=== PATIENT | female | born 1985 | race Caucasian/White ===

== ENCOUNTER 2024-01-17 11:24 | Outpatient (REF) | payer OTHER, SELFPAY ==
[2024-01-17 14:40] LABS: MANUAL DIFF FLAG NO
[2024-01-17 14:49] LABS: Basophils Percent Auto 0.3 % (0-2); Eosinophils Percent Auto 0.2 % (0-4); Hematocrit 39.7 % (37.0-47.0); Imm Gran Abs Auto 0.03 X10*3/uL (0.00-0.03); Imm Gran Pct Auto 0.3 % (0.0-0.4); Lymphocytes Absolute Auto 1.5 X10*3/uL (1.2-4.9); Lymphocytes Percent Auto 16.4 % (20-40); Mean Corpuscular HGB Conc 32.7 g/dl (31.0-35.0); Mean Corpuscular Hemoglobin 28.4 pg (27.0-33.0); Mean Corpuscular Volume 86.7 fL (80.0-98.0); Mean Platelet Volume 11.1 fL (9.4-12.3); Monocytes Absolute Auto 0.5 X10*3/uL (0.1-1.2); Neutrophils Percent Auto 77.8 % (45-73); Platelet Count 255 X10*3/uL (160-400); Red Blood Count 4.58 X10*6/uL (4.20-5.50); Red Cell Distribution Width 13.4 % (11.0-16.0)
[2024-01-17 15:15] LABS: Alanine Aminotransferase 9 U/L (0-31); Albumin Level 4.5 g/dL (3.5-5.0); Alkaline Phosphatase 40 U/L (39-117); Anion Gap 12 (12-20); Aspartate Amino Transferase 14 U/L (5-31); Bilirubin Total 0.2 mg/dL (0.0-1.0); Blood Urea Nitrogen 9 mg/dL (9-16); Calcium 9.5 mg/dL (8.4-10.2); Carbon Dioxide 26 mmol/L (22-29); Chloride 107 mmol/L (96-108); Cholesterol 181 mg/dL (<200); Estimated Glomerular Filt Rate > 60; Glucose Random 100 mg/dL (60-115); HDL Cholesterol 82 mg/dL (>40); LDL Cholesterol Calculated 84 mg/dL (<100); Potassium 3.9 mmol/L (3.3-5.1); Sodium 141 mmol/L (135-145); Total Protein 7.2 g/dL (6.5-8.0); Triglycerides 75 mg/dL (<150)
[2024-01-17 15:33] LABS: TSH reflex Free T4 0.95 uIU/mL (0.32-4.0)
== END 2024-01-17 11:25 | disposition home or self-care (01) ==
LOC: HO.CHCLDS 11:24
PROVIDERS: Visit Provider Internal Medicine
DX: R79.89 Other specified abnormal findings of blood chemistry (principal); K58.0 Irritable bowel syndrome with diarrhea; L40.9 Psoriasis, unspecified; Z30.09 Encounter for other general counseling and advice on contraception
CPT/HCPCS: 36415; 80053; 80061; 82306; 84443; 85025

== ENCOUNTER 2024-01-29 11:08 | Outpatient (REF) | payer MEDICAID, SELFPAY ==
[2024-02-01 08:18] LABS: TS Negative Control Passed; TS Panel A 0; TS Panel B 0; TS Positive Control Passed; TSpotTB Negative (Negative)
== END 2024-01-29 11:09 | disposition home or self-care (01) ==
LOC: HO.CHCLDS 11:08
PROVIDERS: Visit Provider Internal Medicine
DX: L40.9 Psoriasis, unspecified (principal)
CPT/HCPCS: 36415; 86481

== ENCOUNTER 2024-07-02 | Outpatient (REF) | payer MEDICAID, SELFPAY ==
[2024-07-03 10:42] LABS: HPV 16,18/45 See PAP report
[2024-07-12 16:53] LABS: C. trachomatis RNA TMA Not Detected (Not Detected); N. gonorrhoeae RNA TMA Not Detected (Not Detected); Trichomonas (NAAT) Not Detected (Not Detected)
== END 2024-07-02 00:01 | disposition home or self-care (01) ==
LOC: HO.LNP
PROVIDERS: Visit Provider Advanced Practice Midwife
DX: Z12.4 Encounter for screening for malignant neoplasm of cervix (principal); Z11.51 Encounter for screening for human papillomavirus (HPV); N89.8 Other specified noninflammatory disorders of vagina
CPT/HCPCS: 87491; 87591; 87624; 87661; 88175

== ENCOUNTER 2024-12-03 13:20 | Outpatient (REF) | payer MEDICAID, SELFPAY ==
[2024-12-03 15:08] LABS: Amphetamine Screen Urine Not Detected (Not Detect); Barbiturates, Urine Not Detected (Not Detect); Benzodiazepines Screen Urine Not Detected (Not Detect); Buprenorphine Scr Not Detected (Not Detect); Cannabinoid Screen Urine POSITIVE (Not Detect); Cocaine Screen Urine Not Detected (Not Detect); Fentanyl, urine Not Detected (Not Detect); Methadone Screen, Urine Not Detected (Not Detect); Opiate Screen Urine Not Detected (Not Detect); Oxycodone Screen Urine Not Detected (Not Detect); Phencyclidine Screen Urine Not Detected (Not Detect)
--- OUTSIDE RECORDS SUMMARY | 2024-12-03 15:49 | XMS_ITS | Encounter Summary ---
Author Organization [employer] Address [address] [place] [address] 7 [place] [address] Care Team Providers Care Supervisor Transcribing Operators Name Role Phone Elizabeth Marquez MD Primary Care Provider [phone] Abimbola Sabillon MD Primary Care Provider [phone] Reason for Visit * Reason Onset Date Comments Call Back Request 12/11/2023 Appointment Request 12/11/2023 Encounter Details Date Type Department Care Team ([facility] st Contact Info) Description 12/11/2023 Telephone [facility] [address], [place] [phone] Elizabeth Marquez MD [address] [place], [place] [phone] Call Back Request; Appointment Request Social History Tobacco Use Types Packs/Day Years Used Date Smoking Tobacco: Former Cigarettes Q uit: 2004 Smokeless Tobacco: Never Depression Answer Date Recorded Patient Health Questionnaire-9 Score 0 08/16/2022 Depression Answer Date Recorded Patient Health Questionnaire-2 Score 0 08/16/2022 Comments Unknown Sex and Gender Information Value Date Recorded Sex Assigned at Female 06/19/2022 10:27 AM EDT Legal Sex Female 10:27 AM EDT Gender Identity Female 06/19/2022 10:27 AM EDT Sexual Orientation Straight 06/19/2022 10 :27 AM EDT documented as of this encounter Miscellaneous Notes * Telephone Encounter - Celena Urena - 12/11/2023 9:21 AM EDT Tc from pt requesting an appointment for psoriatic arthritis. Pt states she used to be prescribed stelara inejctions but due to insurance has not taken any. Pt is requesting a call today. Please contact pt at [phone] documented in this encounter Plan of Treatment Upcoming Encounters Date Type Department Care Team (Late st Contact Info) Description 02/06/2025 4:00 PM EDT Office Visit [facility] [address] [place] [address] Abimbola Sabillon MD [address] [place] [address] documented as of this encounter Visit Diagnoses Not on filedocumented in this encounter Additional Health Concerns Assessment Noted Time PHQ-9 Depression Total Score: 0 08/16/20 9:06 AM EST documented as of this encounter Care Teams Supervisor Transcribing Operators Relationship Specialty Start Date End Date Elizabeth Marquez MD [address] [place] [id number] PCP - General Family Medicine 01/13/20 01/16/24 Abimbola Sabillon MD [address] [place] [id number] PCP - General Internal Medicine 01/17/24 documented as of this encounter
--- OUTSIDE RECORDS SUMMARY | 2024-12-03 15:49 | XMS_ITS | Encounter Summary ---
Author Organization [employer] Address [address] [place] [id number] Care Team Providers Care Mechanic Driver Name Role Phone Elizabeth Marquez MD Primary Care Provider [phone] Abimbola Sabillon MD Primary Care Provider [phone] Reason for Visit * Reason Comments Med Refill Encounter Details Date Type Department Care Team ([facility] Contact Info) Description 05/06/2023 Refill [facility] [address] [place] [address] Elizabeth Marquez MD [address] [place] [address] Social History Tobacco Use Types Packs/Day Years [...] AM EDT documented as of this encounter Plan of Treatment Upcoming Encounters Date Type Department Care Team ([facility] Contact Info) Description 02/06/2025 4:00 PM EDT Office Visit [facility] [address] [place] [address] Abimbola Sabillon MD [address] [place] [address] documented as of this encounter Visit Diagnoses Not on filedocumented in this encounter Additional Health Concerns Assessment Noted Time PHQ-9 Depression Total Score: 0 08/16/20 22 9:06 AM EST documented as of this encounter Care Teams Mechanic Driver Relationship Specialty Start Date End Date Elizabeth Marquez MD [address] [place] [id number] PCP - General Family Medicine 01/13/20 01/16/24 Abimbola Sabillon MD [address] [place] [address] PCP - General Internal Medicine 01/17/24 documented as of this encounter
--- OUTSIDE RECORDS SUMMARY | 2024-12-03 15:49 | XMS_ITS | Clinical Summary ---
Author Organization [employer] Address [address] [facility] [address] [place] [address] Care Team Providers Care Shotgun Shell Assembly Machine Operator Name Role Phone Abimbola Sabillon MD Primary Care Provider [phone] Allergies Active Allergy Reactions Criticality Noted Date Comments Doxycycline 04/18/2019 Atomoxetine Nausea 11/12/2024 Medications * This document contains information received from the source organization and may not represent a complete record from that organization. Trexall 10 MG tablet TAKE ONE TABLET TWICE A WEEK 022 Active ergocalciferol (Vitamin D2) 1.25 MG (67681 UT) capsuleIndicatio ns:Low vitamin D level Take 1 capsule (1.25 mg) by mouth 1 (one) time per week. 12 capsule 024 Active polyethylene glycol, PEG, 3350 (GaviLAX) 17 GM/SCOOP powderIndication s:Irritable bowel syndrome with diarrhea TAKE 17G BY MOUTH EVERY DAY MIXED WITH 8 OZ. WATER, JUICE, SODA, COFFEE OR TEA NEEDED FOR CONSTIPATION 510 g 11 024 Active norgestimate-eth inyl estradiol (Tri-Estarylla) 0.18/0.215/0.25 MG-35 MCG tabletIndication s:Encounter for other general counseling or advice on contraception Take 1 tablet by mouth Once per day. 84 tablet 3 024 Active cetirizine (ZyrTEC) 10 MG tabletIndication s:Seasonal allergies Take 1 tablet (10 mg) by mouth Once per day. 30 tablet 11 024 2024 Active Blood Pressure kitIndications:E levated BP without diagnosis of hypertension To check the BP daily 1 kit Active hydroCHLOROthiaz wendy (HYDRODiuril) 12.5 MG tabletIndication s:Elevated BP without diagnosis of hypertension Take 1 tablet (12.5 mg) by mouth Once per day. 30 tablet 11 024 2024 Active valACYclovir (Valtrex) 500 MG tabletIndication s:Cold sore 2 g twice daily for 1 day 4 tablet 5 024 Active Fluocinolone Acetonide Scalp ([place]-Smoothe/F S Scalp) 0.01 % oilIndications:P soriasis To use on the scalp 2 times a week. 118 mL 2 024 Active meloxicam (Mobic) 15 MG tabletIndication s:Pain in other joint Take 1 tablet (15 mg) by mouth Once per day. 30 tablet 2024 Active amLODIPine (Norvasc) 5 MG tabletIndication s:Primary hypertension TAKE 1 TABLET BY MOUTH EVERY DAY 30 tablet 024 Active dicyclomine (Bentyl) 10 MG capsuleIndicatio ns:Irritable bowel syndrome with diarrhea Take 1 capsule (10 mg) by mouth 4 times daily. 120 capsule 024 2024 Active cholecalciferol (Vitamin D-3) 25 MCG (1000 UT) tablet Take 1 tablet (25 mcg) by mouth Once per day. 60 tablet 025 Active ketoconazole (NIZOral) 2 % shampoo Apply topically 2 (two) times a week. 120 mL 11 025 Active hydrocortisone 0.5 % creamIndications :Eyelid dermatitis, allergic/contact Apply topically 2 times daily. 15 g 025 Active clobetasol (Temovate) 0.05 % ointmentIndicati ons:Psoriasis Apply topically 2 times daily. 60 g 025 Active clobetasol (Temovate) 0.05 % external solutionIndicati ons:Psoriasis Apply topically 2 times daily. 50 mL 3 025 Active ustekinumab (Stelara) 45 MG/0.5ML injectionIndicat ions:Psoriasis 45 mg on day 1, 45 mg Day 30 followed by 45 mg q 3 months. 0.5 mL 025 Active amphetamine-dext roamphetamine XR (Adderall XR) 5 MG 24 hr capsuleIndicatio ns:Attention deficit disorder, unspecified type Take 1 capsule (5 mg) by mouth in the morning. Do not crush or chew. 30 capsule 025 Active ustekinumab (Stelara) 45 MG/0.5ML injectionIndicat ions:Psoriasis 45 mg on day 1, 45 mg Day 30 followed by 45 mg q 3 months. 0.5 mL 025 2024 Discontinued(R eorder (will not trigger notification to Pharmacy)) atomoxetine (Strattera) 40 MG capsuleIndicatio ns:Attention deficit disorder, unspecified type 40 mg once daily. Increase after =3 days to 80 mg/day 60 capsule 025 2024 Discontinued atomoxetine (Strattera) 40 MG capsuleIndicatio ns:Attention deficit disorder, unspecified type TAKE 1 CAPSULES BY MOUTH DAILY. INCREASE TO 2 CAPS/DAY AFTER 3 DAYS 60 capsule 025 2024 Discontinued atomoxetine (Strattera) 40 MG capsuleIndicatio ns:Attention deficit disorder, unspecified type TAKE 1 CAPSULES BY MOUTH DAILY. INCREASE TO 2 CAPS/DAY AFTER 3 DAYS 60 capsule 025 2024 Discontinued atomoxetine (Strattera) 40 MG capsuleIndicatio ns:Attention deficit disorder, unspecified type Take 1 capsule (40 mg) by mouth Once per day for 3 days. Swallow capsule whole; do not open. If opened accidentally, do not touch eyes; wash hands immediately (product is an eye irritant). 3 capsule 025 2024 Discontinued(S wendy effects) buPROPion SR (Wellbutrin SR) 100 MG 12 hr tabletIndication s:Attention deficit disorder, unspecified type Take 1 tablet (100 mg) by mouth 2 times daily. 100 mg once daily in the morning. After >=1 week, based on response and tolerability, increase to 100 mg twice daily. 60 tablet 025 2024 Discontinued(S wendy effects) Active Problems Problem Noted Date Diagnosed Date Primary hypertension 07/11/2024 Moderate depressive disorder 03/05/2024 Assessment & Plan (03/05/2024 4:25 PM EDT): PROGRESS NOTE: ID: Susana is a 38 y.o. straight-identified cis-female with No previous hx of MH dx or sx No previous hx of MH services who presents for Anxiety and Depression. During IBH Consult Susana presenting with changes in sleep difficulty falling asleep and difficulty staying asleep , psychomotor retardation, trouble concentrating, fatigue/loss of energy and excessive worry/anxiety, difficulty controlling worry, restless/keyed up/On edge, easily fatigued, difficulty concentrating/Mind going blank , irritability, and sleep disturbance difficulty falling asleep and difficulty staying asleep ; for a period of 18+ mo, for all symptoms in the context of illness comorbidity, concern about health issues, work related stress. Susana presented with concerns of concentration issues, she reports she forget to finished sentences, forget things that costumers have told her 5 min ago, struggle with starting and finishing tasks. She reported family hx of ADHD ( niece) and Schizoaffective bipolar (brother). PLAN: New/Additional Services needed Off-site services for Behavioral Health Integration Plan External OP therapy referral and OP psychiatry Referral Patient Self Plan Patient to utilize skills provided in intervention , Patient to reach out to [facility] team as needed, Patient to engage in OP therapy , and Patient to reach out to [facility] as needed Mild anxiety 03/05/2024 Irritable bowel syndrome with diarrhea 2 Psoriasis 07/23/2018 Encounters Date Type Department Care Team Description 11/28/2024 Orders Only [facility] [address] [place] [address] Abimbola Sabillon MD Attention deficit disorder, unspecified type (Primary Dx) 11/11/2024 Orders Only [facility] [address] [place] [address] Abimbola Sabillon MD Attention deficit disorder, unspecified type (Primary Dx) 11/07/2024 Refill [facility] [address] [place], [place] [phone] Abimbola Sabillon MD Attention deficit disorder, unspecified type 11/05/2024 10:30 AM EDT Office Visit [facility] & PEDS [address] [place] [phone] Abimbola Sabillon MD Primary hypertension (Primary Dx); Psoriasis; Attention deficit disorder, unspecified type 11/05/2024 Refill [facility] PEDS [address] [place] [address] Abimbola Sabillon MD Attention deficit disorder, unspecified type 11/05/2024 Refill [facility] PEDS [address] [place] [address] Abimbola Sabillon MD Attention deficit disorder, unspecified type 11/05/2024 Refill [facility] [address] [place] [address] Abimbola Sabillon MD Psoriasis 11/05/2024 Travel 10/27/2024 Telephone [facility] [address] [place] [address] Abimbola Sabillon MD Medication Question 10/23/2024 Orders Only [facility] [address] [place] [address] Abimbola Sabillon MD Psoriasis 10/15/2024 2:20 PM EST Office Visit [facility] [address] [place] [address] Abimbola Sabillon MD Psoriasis (Primary Dx); Eyelid dermatitis, allergic/contact 10/15/2024 Travel 10/14/2024 Telephone [facility] PEDS [address] [place] [address] Abimbola Sabillon MD Nurse Triage 10/10/2024 Telephone [facility] [address] [place] [phone] Abimbola Sabillon MD Nurse Triage from Last 3 Months Family History Medical History Relation Name Comments Adjustment Disorder with Mix ed Anxiety and Depressed Mood Brother Hyperlipidemia Father Prostate cancer Father Skin cancer Father Stroke Father's Sister Heart disease Mother Hyperlipidemia Mother Relation Name Status Comments Brother Father Father's Sister Mother Social History Tobacco Use Types Packs/Day Years Used Date Smoking Tobacco: Former Cigarettes Q uit: 2005 Smokeless Tobacco: Never Tobacco Cessation:Counseling Given: Not Answered Depression Answer Date Recorded Patient Health Questionnaire-9 Score 16 11/05/2024 Patient Health Questionnaire-9 Score 16 11/05/2024 Last PHQ-9: Questionnaire Data Not on file 0 11/05/2024 Housing Stability Answer Date Recorded What is your housing situation today? I have [employer] 11/05/[address] you li ve. Do you have problems with any of the following? No or not working smoke detectors 11/05/2024 Food Insecurity Answer Date Recorded Within the past 12 months, y ou worried that your food would run out before you got money to buy more: Never True 01/08/2024 Within the past 12 months,th e food you bought just didn't last and you didn't have enough money to get more: Never True Transportation Answer Date Recorded In the past 12 months, has l ack of transportation kept you from medical appts, meetings, work or from getting things needed for daily living? No 01/08/2024 Utilities Answer Date Recorded In the past 12 months, has t he electric, gas, oil or water company threatened to shut off services in your home? No 01/08/2024 Depression Answer Date Recorded Patient Health Questionnaire-2 Score 0 11/05/2024 Internet Access Answer Date Recorded Internet Access Q1 Yes 11/05/2024 Internet Access Q2 Not on file 11/05/2024 Comments No Sex and Gender Information Value Date Recorded Sex Assigned at Female 06/19/2022 10:27 AM EDT Legal Sex Female 10:27 AM EDT Gender Identity Female 06/19/2022 10:27 AM EDT Sexual Orientation Straight 06/19/2022 10 :27 AM EDT Last Filed Vital Signs Vital Sign Reading Time Taken Comments Blood Pressure 123/71 11/05/2024 10:35 AM EDT Pulse 76 11/05/2024 10:35 AM EDT Temperature 36.6 ??C (97.9 ??F) 11/05/2024 10:35 AM E DT Respiratory Rate 20 11/05/2024 10:35 AM EDT Oxygen Saturation 99% 11/05/2024 10:35 AM EDT Inhaled Oxygen Concentration - - Weight 49.9 kg (110 lb) 11/05/2024 10:35 AM EDT Height 161.3 cm (5' 3.5 ) 11/05/2024 10:35 AM ED T Body Mass Index 19.18 11/05/2024 10:35 AM EDT Plan of Treatment Upcoming Encounters Date Type Department Care Team ([facility] st Contact Info) Description 02/06/2025 4:00 PM EDT Office Visit [facility] MED & PEDS [address] [place] [address] Abimbola Sabillon MD [address] [place] [address] Health Maintenance Due Date Last Done Comments HIV Screening 1987 Alcohol/Substance Use Screening 1999 Hepatitis C Screening 2005 HPV/Cotest 09/25/2022 09/25/2017 Influenza Vaccine (#1) 2025 Postp oned from 04/20/2024 (Patient Refused) Depression Monitoring 05/08/2025 11/05/2024 , 11/05/2024 Cervical Cancer Screening 07/02/2025 Family Planning (PISQ) 07/02/2025 07/02/2024 Pap Smear 07/02/2025 07/02/2024 COVID-19 Vaccine (1 - 2023-2 5 season) 2025 Postponed from 04/20/2024 (Patient Refused) DTaP/Tdap/Td Vaccines (1 - Tdap) 07/11/2025 Postponed from 2006 (Patient Refused) Depression Screening 11/05/2025 11/05/2024, 11/05/2024 SDOH Screening 11/05/2025 11/05/2024 Tobacco Screening 11/05/2025 11/05/2024 Lipid Panel 01/16/2029 01/17/2024, 10/27/2021 Zoster Vaccines (1 of 2) 2037 RSV Patients and Patients Aged 60 years or older (1 - 1-dose 75+ series) 2062 HIB Vaccines Aged Out No longer eligi ble based on patient's age to complete this topic HPV Vaccines Aged Out No longer eligi ble based on patient's age to complete this topic Hepatitis A Vaccines Aged Out No long er eligible based on patient's age to complete this topic Hepatitis B Vaccines Discontinued IPV Vaccines Aged Out No longer eligi ble based on patient's age to complete this topic Meningococcal Vaccine Aged Out No sean fay eligible based on patient's age to complete this topic Pneumococcal Vaccine: Pediatrics (0 to 5 Years) and At-Risk Patients (6 to 49) Years) Aged Out No longer eligible b ased on patient's age to complete this topic RSV under 20 months Aged Out No longe r eligible based on patient's age to complete this topic Rotavirus Vaccines Aged Out No longer eligible based on patient's age to complete this topic Procedures Procedure Name Priority Date/Time Associated Diagnosis Comments DRUG MONITOR, PANEL 1, SCREEN, URINE Routine 12/03/2024 1:21 PM EDT Attention deficit disorder, unspecified type AMB REFERRAL TO DERMATOLOGY Urgent 11/06/2024 Psoriasis PAP SMEAR Routine 07/02/2024 11:40 AM EST Cervical cancer screening LIPID PANEL, STANDARD Routine 01/17/2024 11:28 AM EDT Irritable bowel syndrome with diarrhea Psoriasis Low vitamin D level Encounter for other general counseling or advice on contraception ZZZ HISTORICAL HPV MRNA E6/E7 Routine 09/25/2017 2:19 PM EST from Last 3 Months or Most Recently Relevant to Health Maintenance Results * (ABNORMAL) Drug Monitoring, Panel 1, Screen, Urine (12/03/2024 1:21 PM EDT) Opiate Screen Urine Not Detected Not Detect [facility] Comment:Opiate cut-off is 30 0 ng/mL.Positive results are unconfirmed and should not be used fornon-medical purposes. Barbiturates, Urine Not Detected Not Detect [facility] Comment:Barbiturate cut-off is 200 ng/mL.Positive results are unconfirmed and should not be used fornon-medical purposes. Phencyclidine Screen Urine Not Detected Not Detect [facility] Comment:Phencyclidine cut-of f is 25 ng/mL.Positive results are unconfirmed and should not be used fornon-medical purposes. Amphetamine Screen Urine Not Detected Not Detect [facility] Comment:Amphetamine cut-off is 1000 ng/mL.Positive results are unconfirmed and should not be used fornon-medical purposes. Benzodiazepines Screen Urine Not Detected Not Detect [facility] Comment:Benzodiazepine cut-o ff is 200 ng/mL.Positive results are unconfirmed and should not be used fornon-medical purposes. Cocaine Screen Urine Not Detected Not Detect [facility] Comment:Cocaine cut-off is 3 00 ng/mL.Positive results are unconfirmed and should not be used fornon-medical purposes. Cannabinoid Screen Urine POSITIVE(A) Not Detect [facility] Comment:Cannabinoid cut-off is 50 ng/mL.Positive results are unconfirmed and should not be used fornon-medical purposes. Methadone Screen, Urine Not Detected Not Detect ng/mL [facility] Comment:Methadone cut-off is 300 ng/mL.Positive results are unconfirmed and should not be used fornon-medical purposes. FENTANYL URINE Not Detected Not Detect [facility] Comment:Fentanyl cut-off is 1 ng/mL.Positive results are unconfirmed and should not be used fornon-medical purposes. Oxycodone Urine Screen Not Detected Not Detect ng/mL [facility] Comment:Oxycodone cut-off is 100 ng/mL.Positive results are unconfirmed and should not be used fornon-medical purposes. Buprenorphine Screen Not Detected Not Detect ng/mL [facility] Comment:Buprenorphine cut-of f is 5 ng/mL.Positive results are unconfirmed and should not be used fornon-medical purposes. Urine (Urine, Random) 12/03/2024 1:21 PM EDT 12/03/2024 2:32 PM EDT us Abimbola Sabillno MD LAB URINE ORDERABLES Final Result [facility] [address] [place] [address] [phone] * Referral to Dermatology (11/06/2024) us Abimbola Sabillon MD OUTPATIENT REFERRAL ORDERAB LES Final Result * Pap Smear (07/02/2024 11:40 AM EST) Swab Cervical swab / Unknown 07/02/2024 11:40 AM EST 07/03/2024 9:30 AM EST Narrative [facility] - 07/07/2024 10:19 AM EST ----- ------- Name: Susana Mckeon ? Age/Sex: 38/F ? : 1985 Unit#: [id number] ?? Attend Dr: ?Re07/02/24 ?Status: PRE REF ? Location: HO.LNP ?Disch: ? ----- ------- SPEC : [id number] ?RECD: 07/03/24-929 ? STATUS: ??SOUT ? REQ NUM: [id number] ? MARI: 07/02/24-1140 ? SUBM DR: DAMARIS WAGNER CNM ? ENTERED: ??07/03/24 ?SP TYPE: Pap Smr ?OTHR DR: ? ORDERED: ??Pap Smear ? Interpretation ?? Satisfactory for evaluation. ?? Negative for intraepithelial lesion or malignancy. ?? No endocervical cells seen. ?? Coccobacilli consistent with shift in vaginal nando. ? HPV High Risk: ??Negative ? HPV Genotyping 16: ??Negative ?? HPV Genotyping 18: ??Negative ?Clinical Information LMP: Unknown date Previous PAP test: Unknown date/findings ? Material Received ?? ThinPrep-Cervical ----- ------- Signed (signature on file) SEBASTIAN Cedeño (ASCP) 07/07/24 1019 ? ----- ------- ? END OF REPORT ? us Damaris CRISTINA LAB CYTOLOGY ORDERABLES F inal Result Performing Organization Address [facility] Co de Phone Number [facility] [address] [place] [phone] * Lipid Panel, Standard (01/17/2024 11:28 AM EDT) Triglycerides 75 <150 mg/dL [facility] Comment:Desirable Triglyceri de: less than 150 mg/dLBorderline High Triglyceride 150-199 mg/dLHigh Triglyceride: 200-499 mg/dLVery High Triglyceride: greater than or equal to 5OO mg/dL Cholesterol 181 <200 mg/dL [facility] Comment:Desirable Cholestero l: less than 200 mg/dLBorderline High Cholesterol: 200-239 mg/dLHigh Cholesterol: greater than 239 mg/dL LDL Cholesterol Calculated 84 <100 mg/dL [facility] Comment:Desirable LDL: less than 100 mg/dLNear Optimal/Above Optimal LDL: 110- 129 mg/dLBorderline High LDL: 130-159 mg/dLHigh LDL: 160-189 mg/dLVery High LDL: greater than or equal to 190 mg/dL HDL Cholesterol 82 >40 mg/dL [facility] Comment:Desirable HDL: great er than 40 mg/dL Note: This HDL assay may give artificially low results in patients with liver disease. Blood Venous blood specimen / Unknown 01/17/2024 11:28 AM EDT 01/17/2024 2:30 PM EDT us Abimbola Sabillon MD LAB BLOOD ORDERABLES Final Result Performing Organization Address [facility] Co de Phone Number [facility] [address] [place] [address] [phone] * HPV mRNA E6/E7 (09/25/2017 2:19 PM EST) HPV mRNA E6/E7 Not Detected NOT DETECTED [facility] Comment: This test was performed using the APTIMA(R) HPV Assay ([employer] This assay detects E6/E7 viral messenger RNA (mRNA) from 14 high-risk HPV types (16,18,31,33,35,39,45,51, 52,56,58,59,66,68). For additional information please refer to: http://education.Archevos/faq/BWE672f0 (This link is being provided for informational/ educational purposes only.) Test Performed by Chris Arzate, [facility], [address] [place] [phone] Zach Le M.D., Ph.D., Director of Laboratories , [facility] [id number] Please note: ??Effective 05/01/2016, HPV testing will be performed using [employer]'s APTIMA test which targets mRNA. Detecting mRNA instead of DNA, as in older methods, offers significant improvements in specificity. 09/25/2017 2:19 PM EST Damaris Wagner CNM HISTORICAL/NON ORDERABLE LABS Final Result [facility] [address] from Last 3 Months or Most Recently Relevant to Health Maintenance Insurance [employer] [address] [place] [address] Care Teams Shotgun Shell Assembly Machine Operator Relationship Specialty Start Date End Date Abimbola Sabillon MD [address] [place] [phone] PCP - General Internal Medicine 01/17/24
--- OUTSIDE RECORDS SUMMARY | 2024-12-03 15:49 | XMS_ITS | Encounter Summary ---
Author Organization [employer] Address [address] [place] [address] Care Team Providers Care Flakeboard Line Tender Name Role Phone Abimbola Sabillon MD Primary Care Provider [phone] Reason for Visit * Reason Onset Date Comments Medication Question 10/27/2024 Encounter Details Date Type Department Care Team ([facility] st Contact Info) Description 10/27/2024 Telephone [facility] [address] [place] [address] Abimbola Sabillon MD [address] [place] [address] Medication Question Social History Tobacco Use Types Packs/Day Years Used Date Smoking Tobacco: Former Cigarettes Q uit: 2004 Smokeless Tobacco: Never Depression Answer Date Recorded Patient Health Questionnaire-9 Score 11 03/05/2024 Patient Health Questionnaire-9 Score 11 03/05/2024 Last PHQ-9: Questionnaire Data Not on file 0 03/05/2024 Housing Stability Answer Date Recorded What is your housing situation today? I have donald temple 01/08/[address] you li ve. Do you have problems with any of the following? None of the above 01/08/2024 Food Insecurity Answer Date Recorded Within the [...] Date Recorded Patient Health Questionnaire-2 Score 0 03/05/2024 Comments No Sex and Gender Information Value Date Recorded Sex Assigned at Female 06/19/2022 10:27 AM EDT Legal Sex Female 10:27 AM EDT Gender Identity Female 06/19/2022 10:27 AM EDT Sexual Orientation Straight 06/19/2022 10 :27 AM EDT documented as of this encounter Miscellaneous Notes * Telephone Encounter - Leigha Alvarado RN - 10/27/2024 4:05 PM EDT TC to pt pharmacy to verify Stelara dosage. Pharmacist stated wanting clarification of either vialsor pens. Author asked which would the insurance cover. Pharmacist ran both requests, stated that patient insurance will not cover Stelara in either form. Pharmacist stated not having other options for Stelara at this pharmacy, and stated that PA was denied by insurance. Routing information to provider to review and recommend. * Telephone Encounter - Candace Agarwal - 10/27/2024 2:55 PM EDT Tc from Pharmacy stating they received two scripts, 1 on and the second one october 23 and needs to clarify quantity info because they both have different instructions. [phone] documented in this encounter Plan of Treatment Upcoming Encounters Date Type Department Care Team ([facility] st Contact Info) Description 02/06/2025 4:00 PM EDT Office Visit [facility] [address] [place], [place] [phone] Abimbola Sabillon MD [address] [place], [place] [phone] documented as of this encounter Visit Diagnoses Not on filedocumented in this encounter Additional Health Concerns Assessment Noted Time PHQ-9 Depression Total Score: 11 024 3:38 PM EDT documented as of this encounter Care Teams Flakeboard Line Tender Relationship Specialty Start Date End Date Abimbola Sabillon MD [address] [place] [phone] PCP - General Internal Medicine 01/17/24 documented as of this encounter
--- OUTSIDE RECORDS SUMMARY | 2024-12-03 15:49 | XMS_ITS | Encounter Summary ---
Author Organization [employer] Address 75 [facility] 7 [place] [address] Care Team Providers Care Rough And Truing Machine Operator Name Role Phone Abimbola Sabillon MD Primary Care Provider [phone]- [phone] Encounter Details Date Type Department Care Team ([facility] st Contact Info) Description 02/12/2024 Orders Only [facility] CHC MED & PEDS [address] [place], [place] [phone] Abimbola Sabillon MD 505 [place] [address] Social History Tobacco Use Types Packs/Day Years Used Date Smoking Tobacco: Former Cigarettes Q uit: 2004 Smokeless Tobacco: Never Depression Answer Date Recorded Patient Health Questionnaire-9 Score 0 08/16/2022 Housing Stability Answer Date Recorded What is your housing situation today? I have [employer] 01/08/[address] you [...] Description 02/06/2025 4:00 PM EDT Office Visit [facility] MED & PEDS [address] [place] [address] Abimbola Sabillon MD 505 [place] [address] documented as of this encounter Visit Diagnoses Not on filedocumented in this encounter Additional Health Concerns Assessment Noted Time PHQ-9 Depression Total Score: 0 08/16/20 22 9:06 AM EST documented as of this encounter Care Teams Rough And Truing Machine Operator Relationship Specialty Start Date End Date Abimbola Sabillon MD [address] [place] [address] PCP - General Internal Medicine 01/17/24 documented as of this encounter
--- OUTSIDE RECORDS SUMMARY | 2024-12-03 15:49 | XMS_ITS | Encounter Summary ---
Author Organization [employer] Address [address] [place] [address] Care Team Providers Care Cash Control Specialist Name Role Phone Elizabeth Marquez MD Primary Care Provider [phone] Abimbola Sabillon MD Primary Care Provider [phone]- [phone] Encounter Details Date Type Department Care Team (Late Contact Info) Description 2022 Orders Only [facility] MEDICINE [address] [place] [address] Abimbola Sabillon MD [address] [place], [place] [phone] Psoriasis (Primary Dx) Social History Tobacco Use Types Packs/Day Years Used Date Smoking Tobacco: Never Assessed Comments Unknown Sex and Gender Information Value Date Recorded Sex Assigned at Female 06/19/2022 10:27 AM EDT Legal Sex Female 10:27 AM EDT Gender Identity Female 06/19/2022 10:27 AM EDT Sexual Orientation Straight 06/19/2022 10 :27 AM EDT documented as of this encounter Plan of Treatment Upcoming Encounters Date Type Department Care Team (Late Contact Info) Description 02/06/2025 4:00 PM EDT Office Visit [facility] CHC MED & PEDS [address] [place], [place] [phone] Abimbola Sabillon MD [address] [place], [place] [phone] documented as of this encounter Visit Diagnoses Diagnosis Psoriasis- Primary Other psoriasis documented in this encounter Care Teams Cash Control Specialist Relationship Specialty Start Date End Date Elizabeth Marquez MD [address] [place] [address] PCP - General Family Medicine 01/13/20 01/16/24 Abimbola Sabillon MD [address] [place] [address] PCP - General Internal Medicine 01/17/24 documented as of this encounter
--- OUTSIDE RECORDS SUMMARY | 2024-12-03 15:49 | XMS_ITS | Encounter Summary ---
Author Organization [employer] Address 75 [facility] 7 [place] [address] Care Team Providers Care Systems Operator Name Role Phone Abimbola Sabillon MD Primary Care Provider [phone]- [phone] Encounter Details Date Type Department Care Team ([facility] st Contact Info) Description 08/26/2024 Orders Only [facility] CHC MED & PEDS [address] [place], [place] [phone] Abimbola Sabillon MD [address] [place] [address] Social History Tobacco Use Types Packs/Day Years [...] Upcoming Encounters Date Type Department Care Team ([facility] st Contact Info) Description 02/06/2025 4:00 PM EDT Office Visit [facility] MED & PEDS [address] [place] [address] Abimbola Sabillon MD [address] [place] [address] documented as of this encounter Visit Diagnoses Not on filedocumented in this encounter Additional Health Concerns Assessment Noted Time PHQ-9 Depression Total Score: 11 024 3:38 PM EDT documented as of this encounter Care Teams Systems Operator Relationship Specialty Start Date End Date Abimbola Sabillon MD [address] [place] [address] PCP - General Internal Medicine 01/17/24 documented as of this encounter
--- OUTSIDE RECORDS SUMMARY | 2024-12-03 15:49 | XMS_ITS | Encounter Summary ---
Author Organization [employer] Address 75 [facility] 7 [place] [address] Care Team Providers Care Hot Stick Worker Name Role Phone Abimbola Sabillon MD Primary Care Provider [phone]- [phone] Encounter Details Date Type Department Care Team ([facility] st Contact Info) Description 11/28/2024 Orders Only [facility] CHC MED & PEDS [address] [place], [place] [phone] Abimbola Sabillon MD [address] [place] [address] Attention deficit disorder, unspecified type (Primary Dx) Social History Tobacco Use Types Packs/Day Years Used Date Smoking Tobacco: Former Cigarettes Q uit: 2004 Smokeless Tobacco: Never Depression Answer Date Recorded Patient Health Questionnaire-9 Score 16 11/05/2024 Patient Health Questionnaire-9 Score 16 11/05/2024 Last PHQ-9: Questionnaire Data Not on file 0 11/05/2024 Housing Stability Answer Date Recorded What is your housing situation today? I have donald [employer]ick 11/05/[address] you li [...] Description 02/06/2025 4:00 PM EDT Office Visit [facility] MED & PEDS [address] [place] [address] Abimbola Sabillon MD [address] [place] [address] documented as of this encounter Procedures Procedure Name Priority Date/Time Associated Diagnosis Comments DRUG MONITOR, PANEL 1, SCREEN, URINE Routine 12/03/2024 1:21 PM EDT Attention deficit disorder, unspecified type documented in this encounter Results * (ABNORMAL) Drug Monitoring, Panel 1, Screen, Urine (12/03/2024 1:21 PM EDT) Pathologist [facility] Opiate Screen Urine Not Detected Not Detect [facility] Comment:Opiate cut-off is 30 0 ng/mL.Positive results are unconfirmed and should not be used fornon-medical purposes. Barbiturates, Urine Not Detected Not Detect [facility] Comment:Barbiturate cut-off is 200 ng/mL.Positive results are unconfirmed and should not be used fornon-medical purposes. Phencyclidine Screen Urine Not Detected Not Detect [facility] Comment:Phencyclidine cut-of f is 25 ng/mL.Positive results are unconfirmed and should not be used fornon-medical purposes. Amphetamine Screen Urine Not Detected Not Detect [facility] Comment:Amphetamine cut-off is 1000 ng/mL.Positive results are unconfirmed and should not be used fornon-medical purposes. Benzodiazepines Screen Urine Not Detected Not Detect [facility] Comment:Benzodiazepine cut-o ff is 200 ng/mL.Positive results are unconfirmed and should not be used fornon-medical purposes. Cocaine Screen Urine Not Detected Not Detect [facility] Comment:Cocaine cut-off is 3 00 ng/mL.Positive results are unconfirmed and should not be used fornon-medical purposes. Cannabinoid Screen Urine POSITIVE(A) Not Detect [facility] Comment:Cannabinoid cut-off is 50 ng/mL.Positive results are unconfirmed and should not be used fornon-medical purposes. Methadone Screen, Urine Not Detected Not Detect ng/mL [facility] Comment:Methadone cut-off is 300 ng/mL.Positive results are unconfirmed and should not be used fornon-medical purposes. FENTANYL URINE Not Detected Not Detect [facility] Comment:Fentanyl cut-off is 1 ng/mL.Positive results are unconfirmed and should not be used fornon-medical purposes. Oxycodone Urine Screen Not Detected Not Detect ng/mL [facility] Comment:Oxycodone cut-off is 100 ng/mL.Positive results are unconfirmed and should not be used fornon-medical purposes. Buprenorphine Screen Not Detected Not Detect ng/mL [facility] Comment:Buprenorphine cut-of f is 5 ng/mL.Positive results are unconfirmed and should not be used fornon-medical purposes. Urine (Urine, Random) 12/03/2024 1:21 PM EDT 12/03/2024 2:32 PM EDT us Abimbola Sabillon MD LAB URINE ORDERABLES Final Result [facility] [address] [place] [address] [phone] documented in this encounter Visit Diagnoses Diagnosis Attention deficit disorder, unspecified type- Primary documented in this encounter Additional Health Concerns Assessment Noted Time PHQ-9 Depression Total Score: 16 025 11:15 AM EDT documented as of this encounter Care Teams Hot Stick Worker Relationship Specialty Start Date End Date Abimbola Sabillon MD [address] [place] [address] PCP - General Internal Medicine 01/17/24 documented as of this encounter
--- OUTSIDE RECORDS SUMMARY | 2024-12-03 15:49 | XMS_ITS | Encounter Summary ---
Author Organization [employer] Address 75 [facility] 7 [place] [address] Care Team Providers Care Bioinformatics Engineer Name Role Phone Abimbola Sabillon MD Primary Care Provider [phone]- [phone] Encounter Details Date Type Department Care Team ([facility] st Contact Info) Description 11/11/2024 Orders Only [facility] MEDICINE [address] [place] [address] Abimbola Sabillon MD 505 [place] [address] Attention deficit disorder, unspecified type (Primary Dx) Social History Tobacco Use Types Packs/Day Years Used Date Smoking Tobacco: Former Cigarettes Q uit: 2005 Smokeless Tobacco: Never Depression Answer Date Recorded [...] Upcoming Encounters Date Type Department Care Team ([facility] st Contact Info) Description 02/06/2025 4:00 PM EDT Office Visit [facility] CHC MED & PEDS [address] [place] [address] Abimbola Sabillon MD 505 [place] [address] documented as of this encounter Visit Diagnoses Diagnosis Attention deficit disorder, unspecified type- Primary documented in this encounter Additional Health Concerns Assessment Noted Time PHQ-9 Depression Total Score: 16 025 11:15 AM EDT documented as of this encounter Care Teams Bioinformatics Engineer Relationship Specialty Start Date End Date Abimbola Sabillon MD [address] [place] [address] PCP - General Internal Medicine 01/17/24 documented as of this encounter
--- OUTSIDE RECORDS SUMMARY | 2024-12-03 15:49 | XMS_ITS | Encounter Summary ---
Author Organization [employer] Address 75 [facility] 7 [place] [address] Care Team Providers Care Printer Machine Name Role Phone Abimbola Sabillon MD Primary Care Provider [phone]- [phone] Encounter Details Date Type Department Care Team ([facility] st Contact Info) Description 07/15/2024 Orders Only [facility] CHC MED & PEDS [address] [place], [place] [phone] Abimbola Sabillon MD 505 [place] [address] Psoriasis (Primary Dx) Social History Tobacco Use [...] 02/06/2025 4:00 PM EDT Office Visit [facility] MED & PEDS [address] [place] [address] Abimbola Sabillon MD 505 [place] [address] documented as of this encounter Visit Diagnoses Diagnosis Psoriasis- Primary Other psoriasis documented in this encounter Additional Health Concerns Assessment Noted Time PHQ-9 Depression Total Score: 11 024 3:38 PM EDT documented as of this encounter Care Teams Printer Machine Relationship Specialty Start Date End Date Abimbola Sabillon MD [address] [place] [address] PCP - General Internal Medicine 01/17/24 documented as of this encounter
--- OUTSIDE RECORDS SUMMARY | 2024-12-03 15:49 | XMS_ITS | Encounter Summary ---
Author Organization [employer] Address [address] [place] [address] Care Team Providers Care Stacking Machine Operator Name Role Phone Elizabeth Marquez MD Primary Care Provider [phone] Abimbola Sabillon MD Primary Care Provider [phone]- [phone] Reason for Visit * Reason Comments Med Refill Encounter Details Date Type Department Care Team ([facility] Contact Info) Description 05/12/2023 Refill [facility] MED & PEDS [address] [place] [address] Elizabeth Marquez MD 505 [place] [address] Social History Tobacco Use Types Packs/Day Years [...] Upcoming Encounters Date Type Department Care Team ([facility] Contact Info) Description 02/06/2025 4:00 PM EDT Office Visit [facility] MED & PEDS [address] [place] [address] Abimbola Sabillon MD 505 [place] [address] documented as of this encounter Visit Diagnoses Not on filedocumented in this encounter Additional Health Concerns Assessment Noted Time PHQ-9 Depression Total Score: 0 08/16/20 22 9:06 AM EST documented as of this encounter Care Teams Stacking Machine Operator Relationship Specialty Start Date End Date Elizabeth Marquez MD [address] [place] [address] PCP - General Family Medicine 01/13/20 01/16/24 Abimbola Sabillon MD [address] [place] [address] PCP - General Internal Medicine 01/17/24 documented as of this encounter
--- OUTSIDE RECORDS SUMMARY | 2024-12-03 15:49 | XMS_ITS | Encounter Summary ---
Author Organization [employer] Address [address] [place] [address] [facility] [place] [address] Care Team Providers Care Indoor Landscaper/Gardener Name Role Phone Elizabeth Marquez MD Primary Care Provider [phone] Abimbola Sabillon MD Primary Care Provider [phone]- [phone] Encounter Details Date Type Department Care Team (Late Contact Info) Description 07/24/2023 Orders Only [facility] CHC MED & PEDS [address] [place] [address] Abimbola Sabillon MD [address] [place] [address] Psoriasis (Primary Dx) Social History Tobacco Use [...] 4:00 PM EDT Office Visit [facility] MED & PEDS [address] [place] [address] Abimbola Sabillon MD [address] [place] [address] documented as of this encounter Procedures Procedure Name Priority Date/Time Associated Diagnosis Comments T-SPOT(R).TB Routine 01/29/2024 11:09 AM EDT Psoriasis documented in this encounter Results * T-SPOT??.TB (01/29/2024 11:09 AM EDT) [facility] T Spot TB Negative Negative [facility] Comment:A negative test resu lt does not exclude the possibilityof exposure to or infection with Mycobacteriumtuberculosis (M. tuberculosis). Patients with recentexposure to TB infected individuals exhibiting anegative T-SPOT.TB result should be considered forretesting within 6 weeks or if other relevant clinicalsymptoms indicate. Results from T-SPOT.TB testing mustbe used in conjunction with each individual'sepidemiological history, current medical status,and results of other diagnostic evaluations.The T-SPOT.TB test is qualitative and results arereported as positive, borderline, or negative, giventhat the test controls perform as expected. In linewith the Centers for Disease Control and Prevention's2010 recommendation to report quantitative measurementsalongside the qualitative result, the laboratoryprovides spot counts for informational purposes only.The T-SPOT.TB test should not be interpreted as aquantitative test. TS PANEL A 0 [facility] TS PANEL B 0 [facility] Negative Control Passed [facility] Positive Control Passed [facility] Comment:For additional infor marisabel, please refer [email or web address] Matters/faq/[email or web address](This link is being provided for informational/educational purposes only.)THIS TEST WAS PERFORMED AT:[employer] [id number] [place] [address]PMYJBKHKORY SANCHEZ MD,PHD 01/29/2024 11:0 9 AM EDT 01/29/2024 2:22 PM EDT us Abimbola Sabillon MD LAB BLOOD ORDERABLES Final Result [facility] [address] [place] [address] [phone] documented in this encounter Visit Diagnoses Diagnosis Psoriasis- Primary Other psoriasis documented in this encounter Additional Health Concerns Assessment Noted Time PHQ-9 Depression Total Score: 0 08/16/20 22 9:06 AM EST documented as of this encounter Care Teams Indoor Landscaper/Gardener Relationship Specialty Start Date End Date Elizabeth Marquez MD [address] [place] [address] PCP - General Family Medicine 01/13/20 01/16/24 Abimbola Sabillon MD [address] [place] [address] PCP - General Internal Medicine 01/17/24 documented as of this encounter
--- OUTSIDE RECORDS SUMMARY | 2024-12-03 15:49 | XMS_ITS | Encounter Summary ---
Author Organization [employer] Address 75 [facility] 7 [place] [address] Care Team Providers Care Land Leveler Name Role Phone Abimbola Sabillon MD Primary Care Provider [phone]- [phone] Reason for Visit * Reason Onset Date Comments Med Refill 11/07/2024 Encounter Details Date Type Department Care Team ([facility] st Contact Info) Description 11/07/2024 Refill [facility] MED & PEDS [address] [place] [address] Abimbola Sabillon MD [address] [place] [address] Attention deficit disorder, unspecified type Social History Tobacco Use Types Packs/Day Years Used Date Smoking Tobacco: Former Cigarettes Q uit: 2004 Smokeless Tobacco: Never Depression Answer Date Recorded Patient Health Questionnaire-9 Score 16 11/05/2024 Patient Health Questionnaire-9 Score 16 11/05/2024 Last PHQ-9: Questionnaire Data Not on file 0 11/05/2024 Housing Stability Answer Date Recorded What is your housing situation today? I have donald sing 11/05/[address] you li [...] Upcoming Encounters Date Type Department Care Team ([facility] st Contact Info) Description 02/06/2025 4:00 PM EDT Office Visit [facility] MED & PEDS [address] [place] [address] Abimbola Sabillon MD [address] [place] [address] documented as of this encounter Visit Diagnoses Diagnosis Attention deficit disorder, unspecified type documented in this encounter Additional Health Concerns Assessment Noted Time PHQ-9 Depression Total Score: 16 025 11:15 AM EDT documented as of this encounter Care Teams Land Leveler Relationship Specialty Start Date End Date Abimbola Sabillon MD [address] [place] [address] PCP - General Internal Medicine 01/17/24 documented as of this encounter
--- OUTSIDE RECORDS SUMMARY | 2024-12-03 15:49 | XMS_ITS | Encounter Summary ---
Author Organization [employer] Address [address] [place] [address] Care Team Providers Care Pump Installation And Servicer Name Role Phone Abimbola Sabillon MD Primary Care Provider [phone] Reason for Referral * Consultation (Routine) - Authorized Specialty Diagnoses / Procedures Referred By Marissa gilliland Referred To Contact Rheumatology Diagnoses Psoriasis Abimbola Sabillon MD [address] [place] [address] Phone: tel: fax: [facility] [address] [place] [address] Phone: tel: fax: Referral ID Status Reason Start Date Expiration Date Visits Requested Visits Authorized [id number] Authorized Specialty Services Required 10/29/2024 10/29/2025 1 1 * Consultation (Urgent) - Authorized Specialty Diagnoses / Procedures Referred By Marissa gilliland Referred To Contact Dermatology Diagnoses Psoriasis Abimbola Sabillon MD [address] [place] [address] Phone: tel: fax: Kar Macias MD [address] [place] [address] Phone: tel: fax: Referral ID Status Reason Start Date Expiration Date Visits Requested Visits Authorized [id number] Authorized Specialty Services Required 10/27/2024 10/27/2025 1 1 Encounter Details Date Type Department Care Team (Late Contact Info) Description 10/23/2024 Orders Only [facility] MEDICINE [address] [place] [address] Abimbola Sabillon MD [address] [place] [address] Psoriasis Social History Tobacco Use Types Packs/Day Years [...] Description 02/06/2025 4:00 PM EDT Office Visit [facility] CHC MED & PEDS [address] [place] [address] Abimbola Sabillon MD [address] [place] [address] Scheduled Referrals Name Type Priority Associated Diagnoses Order Schedule Referral to Rheumatology Outpatient Referral Routine Psoriasis Expected: 10/29/2024 (Approximate), Expires: 10/29/2025 documented as of this encounter Procedures Procedure Name Priority Date/Time Associated Diagnosis Comments AMB REFERRAL TO DERMATOLOGY Urgent 11/06/2024 Psoriasis documented in this encounter Results * Referral to Dermatology (11/06/2024) us Abimbola Sabillon MD OUTPATIENT REFERRAL ORDERAB LES Final Result documented in this encounter Visit Diagnoses Diagnosis Psoriasis Other psoriasis documented in this encounter Additional Health Concerns Assessment Noted Time PHQ-9 Depression Total Score: 11 03/05/2 024 3:38 PM EDT documented as of this encounter Care Teams Pump Installation And Servicer Relationship Specialty Start Date End Date Abimbola Sabillon MD [address] [place] [address] PCP - General Internal Medicine 01/17/24 documented as of this encounter
--- OUTSIDE RECORDS SUMMARY | 2024-12-03 15:49 | XMS_ITS | Encounter Summary ---
Author Organization [employer] Address 75 [facility] 7 [place] [address] Care Team Providers Care Electronics Worker Name Role Phone Abimbola Sabillon MD Primary Care Provider [phone]- [phone] Encounter Details Date Type Department Care Team ([facility] st Contact Info) Description 03/03/2024 Orders Only [facility] CHC MED & PEDS [address] [place], [place] [phone] Abimbola Sabillon MD [address] [place] [address] Psoriasis Social History Tobacco Use Types Packs/Day [...] Patient Health Questionnaire-2 Score 0 03/05/2024 Comments Unknown Sex and Gender Information Value [...] Description 02/06/2025 4:00 PM EDT Office Visit [facility] MED & PEDS [address] [place] [address] Abimbola Sabillon MD [address] [place] [address] documented as of this encounter Visit Diagnoses Diagnosis Psoriasis Other psoriasis documented in this encounter Additional Health Concerns Assessment Noted Time PHQ-9 Depression Total Score: 0 08/16/20 22 9:06 AM EST documented as of this encounter Care Teams Electronics Worker Relationship Specialty Start Date End Date Abimbola Sabillon MD [address] [place] [address] PCP - General Internal Medicine 01/17/24 documented as of this encounter
--- OUTSIDE RECORDS SUMMARY | 2024-12-03 15:49 | XMS_ITS | Clinical Summary ---
Author Organization [facility] Address [address] [place] [address] Phone Care Team Providers Care Manager Research And Development Name Role Phone Abimbola Sabillon MD Primary Care Provider +1 [phone] Surgical History Surgery Date Site/Laterality Comments WISDOM TOOTH EXTRACTION PROCEDURE: HISTORICAL WISDOM TEETH EXTRACTION TONSILLECTOMY PROCEDURE: HISTORICAL TONSILLECTOMY Medical History Medical History Date Comments Other specified personal his tory presenting hazards to health(V15.89) 2004 DX:Other specifie d personal history presenting hazards to health(V15.89); COMMENT: ascus with HPV Family History Medical History Relation Name Comments Diabetes Brother 1 obese diet Prostate cancer Father skin ca Hyperlipidemia Mother Other: Ca skin Sister 1 Relation Name Status Comments Brother 1 Brother 2 Alive 3, all with hyp erlipidemia Father Alive skin cancer (ba keri cell, maybe more) Mother Alive Hyperlipidemia Sister 1 Sister 2 Alive 2, both with hy perlipidemia Social History Tobacco Use Types Packs/Day Years Used Date Smoking Tobacco: Former Cigarettes Q uit: 08/20/2005 Smokeless Tobacco: Never Alcohol Use Standard Drinks/Week Comments Yes 0 (1 standard drink = 0.6 oz pur e alcohol) Comments Unknown Sex and Gender Information Value Date Recorded Sex Assigned at Female 07/03/2024 11:30 AM EST Legal Sex Female 10:58 PM EST Gender Identity Female 07/03/2024 11:30 AM EST Sexual Orientation Choose not to disclose 2023 11:30 AM EST Obstetrics History Plan of Treatment Health Maintenance Due Date Last Done Comments COVID-19 Vaccine (#1) 1992 DTaP,Tdap,and Td Vaccines (3 - Td or Tdap) 09/13/2021 09/13/2011, 12/30/1999 HIV Screening 05/29/2024 Hepatitis C Screening 05/29/2024 Social Influencers of Health Screening 05/29/2024 Hypertension/CHF/CAD Annual BMP Blood Test 07/09/2024 Depression Screening 03/05/2025 03/05/2024 Influenza Vaccine (Season Ended) 2025 Cervical Cancer Screening: P ap Smear 07/02/2027 07/02/2024 Cholesterol Screening (Lipid Panel) 01/16/2029 01/17/2024 MMR Vaccines Completed 11/28/1999, 11/21/1988 Hepatitis B Vaccines Completed 05/23/2000, 12/28/1999, 11/28/1999 HPV Vaccines Completed 05/02/2008, 01/15/2008, 11/11/2007 HIB Vaccines Aged Out No longer eligi ble based on patient's age to complete this topic Hepatitis A Vaccines Aged Out No long er eligible based on patient's age to complete this topic IPV Vaccines Aged Out No longer eligi ble based on patient's age to complete this topic Meningococcal ACWY Vaccine Aged Out N o longer eligible based on patient's age to complete this topic Meningococcal B Vaccine Aged Out No l onger eligible based on patient's age to complete this topic Pneumococcal Vaccine: Pediatrics (0 to 5 Years) and At-Risk Patients (6 to 64 Years) Aged Out No longer eligible b ased on patient's age to complete this topic RSV Immunization Patients Under 20 months Aged Out No longer eligible b ased on patient's age to complete this topic Varicella Vaccines Aged Out No longer eligible based on patient's age to complete this topic Insurance [facility] Care Teams Manager Research And Development Relationship Specialty Start Date End Date Abimbola Sabillon MD [address] [place] [address] PCP - General Internal Medicine 07/09/24
== END 2024-12-03 13:21 | disposition home or self-care (01) ==
LOC: HO.CHCLDS 13:20
PROVIDERS: Visit Provider Internal Medicine
DX: F98.8 Other specified behavioral and emotional disorders with onset usually occurring in childhood and adolescence (principal)
CPT/HCPCS: 80307

== ENCOUNTER 2025-02-11 14:03 | Outpatient (REF) | payer OTHER, SELFPAY ==
--- OUTSIDE RECORDS SUMMARY | 2025-02-11 16:48 | XMS_ITS | Encounter Summary ---
Author Organization [employer] Address [address] [facility] 7 [place] [address] Care Team Providers Care Life Skills Teacher Name Role Phone Abimbola Sabillon MD Primary Care Provider [phone] [phone] Encounter Details Date Type Department Care Team ([facility] st Contact Info) Description 02/12/2024 Orders Only [facility] CHC MED & PEDS [address] [place], [place] [phone] Abimbola Sabillon MD [address] [place] [address] Social History Tobacco Use Types Packs/Day Years Used Date Smoking Tobacco: Former Cigarettes Q uit: 2004 Smokeless Tobacco: Never Depression Answer Date Recorded Patient Health Questionnaire-9 Score 0 08/16/2022 Housing Stability Answer Date Recorded What is your housing situation today? I have donald maverick 01/08/[address] you li [...] Care Team (Late st Contact Info) Description 05/15/2025 2:30 PM EDT Office Visit [facility] MED & PEDS [address] [place] [address] Abimbola Sabillon MD [address] [place] [address] documented as of this encounter Visit Diagnoses Not on filedocumented in this encounter Additional Health Concerns Assessment Noted Time PHQ-9 Depression Total Score: 0 08/16/20 22 9:06 AM EST documented as of this encounter Care Teams Life Skills Teacher Relationship Specialty Start Date End Date Abimbola Sabillon MD [address] [place] [address] PCP - General Internal Medicine 01/17/24 documented as of this encounter
[2025-02-11 17:56] LABS: MANUAL DIFF FLAG NO
[2025-02-11 18:34] LABS: Alanine Aminotransferase 21 U/L (0-31); Alkaline Phosphatase 39 U/L (39-117); Anion Gap 16 (12-20); Aspartate Amino Transferase 23 U/L (5-31); Bilirubin Total 0.6 mg/dL (0.0-1.0); Blood Urea Nitrogen 14 mg/dL (9-16); Calcium 10.4 mg/dL (8.4-10.2); Carbon Dioxide 25 mmol/L (22-29); Chloride 102 mmol/L (96-108); Cholesterol 211 mg/dL (<200); Estimated Glomerular Filt Rate > 60; Glucose Random 81 mg/dL (60-115); HDL Cholesterol 76 mg/dL (>40); LDL Cholesterol Calculated 119 mg/dL (<100); Potassium 3.6 mmol/L (3.3-5.1); Sodium 139 mmol/L (135-145); Total Protein 7.7 g/dL (6.5-8.0); Triglycerides 80 mg/dL (<150)
[2025-02-11 18:43] LABS: Basophils Percent Auto 0.5 % (0-2); Eosinophils Absolute Auto 0.1 X10*3/uL (0.0-0.4); Eosinophils Percent Auto 1.3 % (0-4); Hematocrit 40.7 % (37.0-47.0); Hemoglobin 13.6 g/dl (12.0-16.0); Imm Gran Abs Auto 0.01 X10*3/uL (0.00-0.03); Imm Gran Pct Auto 0.2 % (0.0-0.4); Lymphocytes Absolute Auto 1.8 X10*3/uL (1.2-4.9); Lymphocytes Percent Auto 29.4 % (20-40); Mean Corpuscular HGB Conc 33.4 g/dl (31.0-35.0); Mean Corpuscular Hemoglobin 28.6 pg (27.0-33.0); Mean Corpuscular Volume 85.7 fL (80.0-98.0); Mean Platelet Volume 11.3 fL (9.4-12.3); Monocytes Absolute Auto 0.5 X10*3/uL (0.1-1.2); Monocytes Percent Auto 8.4 % (2-11); Neutrophils Absolute Auto 3.7 x10*3/uL (2.0-8.3); Neutrophils Percent Auto 60.2 % (45-73); Platelet Count 276 X10*3/uL (160-400); Red Blood Count 4.75 X10*6/uL (4.20-5.50); Red Cell Distribution Width 13.2 % (11.0-16.0); White Blood Count 6.1 X10*3/uL (4.8-10.8)
[2025-02-12 22:39] LABS: Antibody to SS-A Antigen <1.0 NEG AI (<1.0 NEG); Antibody to SS-B Antigen <1.0 NEG AI (<1.0 NEG)
[2025-02-13 11:43] LABS: Anti Nuclear Antibody Screen NEGATIVE (NEGATIVE)
[2025-02-14 13:33] LABS: Centromere Protein A Ab <11 SI (<11); Centromere Protein B Ab <11 SI (<11); Fibrillarin Ab <11 SI (<11); PM SCL 100 Ab <11 SI (<11); PM SCL 75 Ab <11 SI (<11); RNA Polymerase III RP11 Ab <11 SI (<11); RNA Polymerase III RP155 Ab <11 SI (<11); SCL-70 Extractable Nuclear Ab <11 SI (<11); Th-To Ab <11 SI (<11); U1 SNRNP RNP 70KD <11 SI (<11); U1 SNRNP RNP A <11 SI (<11); U1 SNRNP RNP C <11 SI (<11)
== END 2025-02-11 14:04 | disposition home or self-care (01) ==
LOC: HO.CHCLDS 14:03
PROVIDERS: PCP Internal Medicine; Referring Provider Internal Medicine; Visit Provider Internal Medicine
DX: I10 Essential (primary) hypertension (principal); R21 Rash and other nonspecific skin eruption
CPT/HCPCS: 36415; 80053; 80061; 82550; 84182; 84443; 85025; 86038; 86235

== ENCOUNTER 2025-06-24 11:28 | Outpatient (REF) | payer OTHER, SELFPAY ==
--- OUTSIDE RECORDS SUMMARY | 2025-06-24 14:01 | XMS_ITS | Encounter Summary ---
Author Organization [employer] Address 75 [facility] 7 [place] [address] Care Team Providers Care Trade Clerk Name Role Phone Abimbola Sabillon MD Primary Care Provider [phone] Encounter Details Date Type Department Care Team ([facility] st Contact Info) Description 08/26/2024 Orders Only [facility] CHC MED & PEDS [address] [place], [place] [phone] Abimbola Sabillon MD [address] [place] [address] Social History Tobacco Use Types Packs/Day Years [...] as of this encounter Plan of Treatment Not on file documented as of this encounter Visit Diagnoses Not on filedocumented in this encounter Additional Health Concerns Assessment Noted Time PHQ-9 Depression Total Score: 11 024 3:38 PM EDT documented as of this encounter Care Teams Trade Clerk Relationship Specialty Start Date End Date Abimbola Sabillon MD [address] [place] [address] PCP - General Internal Medicine 01/17/24 documented as of this encounter
--- OUTSIDE RECORDS SUMMARY | 2025-06-24 14:01 | XMS_ITS | Encounter Summary ---
Author Organization [employer] Address 75 [facility] 7 [place] [address] Care Team Providers Care Floor Broker Name Role Phone Abimbola Sabillon MD Primary Care Provider [phone] Encounter Details Date Type Department Care Team ([facility] st Contact Info) Description 11/11/2024 Orders Only [facility] MEDICINE [address] [place] [address] Abimbola Sabillon MD [address] [place] [address] Attention deficit disorder, unspecified type (Primary Dx) [...] documented as of this encounter Care Teams Floor Broker Relationship Specialty Start Date End Date Abimbola Sabillon MD [address] [place] [address] PCP - General Internal Medicine 01/17/24 documented as of this encounter
--- OUTSIDE RECORDS SUMMARY | 2025-06-24 14:01 | XMS_ITS | Encounter Summary ---
Author Organization [email or web address] Address [address] [place] [address] Care Team Providers Care Communications Tower Technician Name Role Phone Elizabeth Marquez MD Primary Care Provider [phone] Abimbola Sabillon MD Primary Care Provider [phone]- [phone] Encounter Details Date Type Department Care Team (Late st Contact Info) Description 2022 Orders Only [facility] MEDICINE [address] [place] [address] Abimbola Sabillon MD [address] [place], [place] [phone] Psoriasis (Primary Dx) Social History Tobacco Use [...] psoriasis documented in this encounter Care Teams Communications Tower Technician Relationship Specialty Start Date End Date Elizabeth Marquez MD [address] [place] [address] PCP - General Family Medicine 01/13/20 01/16/24 Abimbola Sabillon MD [address] [place] [address] PCP - General Internal Medicine 01/17/24 documented as of this encounter
--- OUTSIDE RECORDS SUMMARY | 2025-06-24 14:01 | XMS_ITS | Encounter Summary ---
Author Organization [employer] Address [address] [place] [address] Care Team Providers Care Quality Improvement Coordinator Name Role Phone Abimbola Sabillon MD Primary Care Provider [phone] Reason for Referral * Consultation (Routine) - Closed Specialty Diagnoses / Procedures Referred By Marissa gilliland Referred To Contact Rheumatology Diagnoses Psoriasis Abimbola Sabillon MD [address] [place] [address] Phone: tel: fax: [facility] [address] [place] [address] Phone: tel: fax: Referral ID Status Reason Start Date Expiration Date V isits Requested Visits Authorized [id number] Closed Specialty Services Required 10/29/2024 10/29/2025 1 1 * Consultation (Urgent) - Closed Specialty Diagnoses / Procedures Referred By Marissa gilliland Referred To Contact Dermatology Diagnoses Psoriasis Abimbola Sabillon MD [address] [place] [address] Phone: tel: fax: Kar Macias MD [address] [place] [address] Phone: tel: fax: Referral ID Status Reason Start Date Expiration Date V isits Requested Visits Authorized [id number] Closed Specialty Services Required 10/27/2024 10/27/2025 1 1 Encounter Details Date Type Department Care Team (Late st Contact Info) Description 10/23/2024 Orders Only [facility] MEDICINE [address] [place] [address] Abimbola Sabillon MD [address] [place] [address] Psoriasis Social History Tobacco Use Types Packs/Day [...] as of this encounter Plan of Treatment Scheduled Referrals Name Type Priority Associated Diagnoses [...] Noted Time PHQ-9 Depression Total Score: 11 03/05/ 024 3:38 PM EDT documented as of this encounter Care Teams Quality Improvement Coordinator Relationship Specialty Start Date End Date Abimbola Sabillon MD [address] [place] [address] PCP - General Internal Medicine 01/17/24 documented as of this encounter
--- OUTSIDE RECORDS SUMMARY | 2025-06-24 14:01 | XMS_ITS | Encounter Summary ---
Author Organization [employer] Address [address] [place] [address] Care Team Providers Care Plate Straightener Name Role Phone Abimbola Sabillon MD Primary Care Provider [phone] Reason for Visit * Reason Onset Date Comments Med Refill 11/07/2024 Encounter Details Date Type Department Care Team ([facility] st Contact Info) Description 11/07/2024 Refill [facility] MED & PEDS [address] [place] [address] Abimbola Sabillon MD [address] [place] [address] Attention deficit disorder, unspecified type Social History [...] documented as of this encounter Care Teams Plate Straightener Relationship Specialty Start Date End Date Abimbola Sabillon MD [address] [place] [address] PCP - General Internal Medicine 01/17/24 documented as of this encounter
--- OUTSIDE RECORDS SUMMARY | 2025-06-24 14:01 | XMS_ITS | Encounter Summary ---
Author Organization [employer] Address [address] [place] [address] Care Team Providers Care Automobile Dealer Name Role Phone Abimbola Sabillon MD Primary Care Provider [phone] Reason for Referral * Consultation (Routine) - Authorized Specialty Diagnoses / Procedures Referred By Contac t Referred To Contact Rheumatology Diagnoses Psoriasis Psoriatic arthritis (CMS/HCC) ([facility]) Abimbola Sabillon MD [address] [place] [address] Phone: tel: fax: [facility] Rheumatology [address] [place], [place] Phone: tel: fax: Referral ID Status Reason Start Date Expiration Date Visits Requested Visits Authorized [id number] Authorized Specialty Services Required 12/23/2024 12/23/2025 1 1 Encounter Details Date Type Department Care Team (Late st Contact Info) Description 12/23/2024 Orders Only [facility] CHC MED & PEDS [address] [place], [place] [phone] Abimbola Sabillon MD [address] [place] [phone] Psoriasis (Primary Dx); Psoriatic arthritis (CMS/HCC) Social History Tobacco Use Types Packs/Day Years [...] Referral to Rheumatology Outpatient Referral Routine Psoriasis Psoriatic arthritis (CMS/HCC) Expected: 12/23/2024 (Approximate), Expires: 12/23/2025 documented as of this encounter Visit Diagnoses Diagnosis Psoriasis- Primary Other psoriasis Psoriatic arthritis (CMS/HCC) (HCC) Psoriatic arthropathy documented in this encounter Additional Health Concerns Assessment Noted Time PHQ-9 Depression Total Score: 16 025 11:15 AM EDT documented as of this encounter Care Teams Automobile Dealer Relationship Specialty Start Date End Date Abimbola Sabillon MD [address] [place] [address] PCP - General Internal Medicine 01/17/24 documented as of this encounter
--- OUTSIDE RECORDS SUMMARY | 2025-06-24 14:01 | XMS_ITS | Encounter Summary ---
Author Organization [employer] Address [address] [place] [address] [address] [address] Care Team Providers Care Hot Mix Operator Name Role Phone Elizabeth Marquez MD Primary Care Provider [phone] Abimbola Sabillon MD Primary Care Provider [phone] Reason for Visit * Reason Comments Med Refill Encounter Details Date Type Department Care Team (Late st Contact Info) Description 05/12/2023 Refill [facility] CHC MED & PEDS [address] [place], [place] [phone] Elizabeth Marquez MD [address] [place], [place] [phone] Social History Tobacco Use Types Packs/Day Years [...] as of this encounter Care Teams Hot Mix Operator Relationship Specialty Start Date End Date Elizabeth Marquez MD [address] [place] [address] PCP - General Family Medicine 01/13/20 01/16/24 Abimbola Sabillon MD [address] [place] [address] PCP - General Internal Medicine 01/17/24 documented as of this encounter
--- OUTSIDE RECORDS SUMMARY | 2025-06-24 14:01 | XMS_ITS | Encounter Summary ---
Author Organization [employer] Address [address] [place] [address] 7[place], [place] [address] Care Team Providers Care Pharmacovigilance Specialist Name Role Phone Elizabeth Marquez MD Primary Care Provider [phone] Abimbola Sabillon MD Primary Care Provider [phone]- [phone] Reason for Visit * Reason Comments Med Refill Encounter Details Date Type Department Care Team (Late st Contact Info) Description 05/06/2023 Refill [facility] CHC MED & PEDS [address] [employer], [place] [phone] Elizabeth Marquez MD [address] [place], [place] [phone] Social History Tobacco Use Types Packs/Day Years [...] documented as of this encounter Care Teams Pharmacovigilance Specialist Relationship Specialty Start Date End Date Elizabeth Marquez MD [address] [place] [address] PCP - General Family Medicine 01/13/20 01/16/24 Abimbola Sabillon MD [address] [place] [address] PCP - General Internal Medicine 01/17/24 documented as of this encounter
--- OUTSIDE RECORDS SUMMARY | 2025-06-24 14:01 | XMS_ITS | Encounter Summary ---
Author Organization [employer] Address 75 [facility] 7 [place] [address] Care Team Providers Care Director Of Planning Name Role Phone Abimbola Sabillon MD Primary Care Provider [phone] Encounter Details Date Type Department Care Team ([facility] st Contact Info) Description 01/30/2025 Orders Only [facility] CHC MED & PEDS [address] [place], [place] [phone] Abimbola Sabillon MD [address] [place] [address] Attention deficit disorder, unspecified type (Primary Dx); Hypercalcemia Social History Tobacco Use Types Packs/Day Years [...] of this encounter Plan of Treatment Scheduled Orders Name Type Priority Associated Diagnoses Orde r Schedule Basic Metabolic Panel Lab Routine Hypercalcemia Expected: 02/12/2025 (Approximate), Expires: 02/12/2026 PTH, Intact Without Calcium Lab Routine Hypercalcemia Expected: 02/12/2025, Expires: 02/12/2026 documented as of this encounter Visit Diagnoses Diagnosis Attention deficit disorder, unspecified type- Primary Hypercalcemia documented in this encounter Additional Health Concerns Assessment Noted Time PHQ-9 Depression Total Score: 16 025 11:15 AM EDT documented as of this encounter Care Teams Director Of Planning Relationship Specialty Start Date End Date Abimbola Sabillon MD [address] [place] [address] PCP - General Internal Medicine 01/17/24 documented as of this encounter
--- OUTSIDE RECORDS SUMMARY | 2025-06-24 14:01 | XMS_ITS | Encounter Summary ---
Author Organization [employer] Address 75 [facility] 7 [place] [address] Care Team Providers Care Programmer Analyst Consultant Name Role Phone Abimbola Sabillon MD Primary Care Provider [phone] Encounter Details Date Type Department Care Team ([facility] st Contact Info) Description 02/12/2024 Orders Only [facility] CHC MED & PEDS [address] [place], [place] [phone] Abimbola Sabillon MD [address] [place] [address] Social History Tobacco Use Types Packs/Day Years [...] documented as of this encounter Care Teams Programmer Analyst Consultant Relationship Specialty Start Date End Date Abimbola Sabillon MD [address] [place] [address] PCP - General Internal Medicine 01/17/24 documented as of this encounter
--- OUTSIDE RECORDS SUMMARY | 2025-06-24 14:01 | XMS_ITS | Encounter Summary ---
Author Organization [employer] Address [address] [place] [address] Care Team Providers Care Guard Museum Name Role Phone Abimbola Sabillon MD Primary Care Provider [phone] Reason for Visit * Reason Onset Date Comments Medication Question 10/27/2024 Encounter Details Date Type Department Care Team ([facility] st Contact Info) Description 10/27/2024 Telephone [facility] MEDICINE [address] [place] [address] Abimbola Sabillon MD [address] [place] [address] Medication Question Social History Tobacco Use Types [...] info because they both have different instructions. [phone] documented in this encounter Plan of Treatment Not on file documented as of this encounter Visit Diagnoses Not on filedocumented in this encounter Additional Health Concerns Assessment Noted Time PHQ-9 Depression Total Score: 11 024 3:38 PM EDT documented as of this encounter Care Teams Guard Museum Relationship Specialty Start Date End Date Abimbola Sabillon MD [address] [place] [address] PCP - General Internal Medicine 01/17/24 documented as of this encounter
--- OUTSIDE RECORDS SUMMARY | 2025-06-24 14:01 | XMS_ITS | Encounter Summary ---
Author Organization [employer] Address 75 [facility] 7t [place] [address] Care Team Providers Care Director Operating Name Role Phone Abimbola Sabillon MD Primary Care Provider [phone] Encounter Details Date Type Department Care Team ([facility] st Contact Info) Description 12/16/2024 Orders Only [facility] CHC MED & PEDS [address] [place] [address] Keisha Stout Social History Tobacco Use Types Packs/Day Years Used Date Smoking Tobacco: Former Cigarettes Q uit: 2004 Smokeless Tobacco: Never Depression Answer Date Recorded Patient Health Questionnaire-9 Score 16 11/05/2024 Patient Health Questionnaire-9 Score 16 11/05/2024 Last PHQ-9: Questionnaire Data Not on file 0 11/05/2024 Housing Stability Answer Date Recorded What is your housing situation today? I have [employer] 11/05/[address] you [...] the past 12 months, has t he [employer], gas, oil or water company threatened to [...] on file documented as of this encounter Procedures Procedure Name Priority Date/Time Associated Diagnosis Comments HPV MRNA E6/E7 REFLEX TO HPV 16, 18/45 Routine 07/02/2024 12:00 AM EST documented in this encounter Results * HPV mRNA E6/E7 w/Reflex to HPV Genotypes 16, 18/45 (07/02/2024 12:00 AM EST) us Historical Provider LAB CYTOLOGY ORDERABLES F inal Result [facility] [address] [place] [address] [phone] documented in this encounter Visit Diagnoses Not on filedocumented in this encounter Additional Health Concerns Assessment Noted Time PHQ-9 Depression Total Score: 16 025 11:15 AM EDT documented as of this encounter Care Teams Director Operating Relationship Specialty Start Date End Date Abimbola Sabillon MD [address] [place] [address] PCP - General Internal Medicine 01/17/24 documented as of this encounter
--- OUTSIDE RECORDS SUMMARY | 2025-06-24 14:01 | XMS_ITS | Clinical Summary ---
Author Organization [facility] Address [address] [place] [address] Phone Care Team Providers Care Rad Tech Name Role Phone Abimbola Sabillon MD Primary Care Provider [phone] Encounters Date Type Department Care Team Description 05/25/2025 Telephone Gastroenterology - [address] [address] Kar Claire MD from Last 3 Months Surgical History Surgery Date Site/Laterality Comments WISDOM [...] AM EST Obstetrics History Plan of Treatment Upcoming Encounters Date Type Department Care Team (Late st Contact Info) Description 11/18/2025 1:20 PM EDT Office Visit Gastroenterology - [address] [facility] [address] [place] [phone] Lupe Ulloa, JULIAN 299 [facility] [address] [place] [address] Health Maintenance Due Date Last Done Comments DTaP,Tdap,and Td Vaccines (3 - Td or Tdap) 09/13/2021 09/13/2011, 12/30/1999 HIV Screening 05/29/2024 Hepatitis C Screening 05/29/2024 Social Influencers of Health Screening 05/29/2024 Depression Screening 08/20/2024 COVID-19 Vaccine ( - 2023-2 5 season) 2025 Influenza Vaccine (#1) 2025 Cervical Cancer Screening: P ap Smear 07/02/2027 07/02/2024 Cholesterol Screening (Lipid Panel) 01/16/2029 01/17/2024 RSV Immunization Adult Patients (1 - 1-dose 75+ series) 2062 MMR Vaccines Completed 11/28/1999, 11/21/1988 Hepatitis B [...] 5 Years) and At-Risk Patients (6 to 49 Years) Aged Out No longer eligible b ased on patient's age to complete this topic RSV Immunization Patients Under 20 months Aged Out No longer eligible b ased on patient's age to complete this topic Varicella Vaccines Aged Out No longer eligible based on patient's age to complete this topic Insurance [facility] Care Teams Rad Tech Relationship Specialty Start Date End Date Abimbola Sabillon MD [address] [place] [address] PCP - General Internal Medicine 07/09/24
--- OUTSIDE RECORDS SUMMARY | 2025-06-24 14:01 | XMS_ITS | Encounter Summary ---
Author Organization [employer] Address [address] [place] [address] Care Team Providers Care Passenger Relations Representative Name Role Phone Elizabeth Marquez MD Primary Care Provider [phone] Abimbola Sabillon MD Primary Care Provider [phone] Reason for Visit * Reason Onset Date Comments Call Back Request 12/11/2023 Appointment Request 12/11/2023 Encounter Details Date Type Department Care Team ([facility] st Contact Info) Description 12/11/2023 Telephone [facility] CHC MED & PEDS [address] [place], [place] [phone] Elizabeth Marquez MD [address] [place], [place] [phone] Call Back Request; Appointment Request Social History [...] Miscellaneous Notes * Telephone Encounter - Celena Romel - 12/11/2023 9:21 AM EDT Tc from pt requesting an appointment for psoriatic arthritis. Pt states she used to be prescribed stelara inejctions but due to insurance has not taken any. Pt is requesting a call today. Please contact pt at [phone] documented in this encounter Plan of Treatment Not on file documented as of this encounter Visit Diagnoses Not on filedocumented in this encounter Additional Health Concerns Assessment Noted Time PHQ-9 Depression Total Score: 0 08/16/20 9:06 AM EST documented as of this encounter Care Teams Passenger Relations Representative Relationship Specialty Start Date End Date Elizabeth Marquez MD [address] [place] [address] PCP - General Family Medicine 01/13/20 01/16/24 Abimbola Sabillon MD [address] [place] [address] PCP - General Internal Medicine 01/17/24 documented as of this encounter
--- OUTSIDE RECORDS SUMMARY | 2025-06-24 14:01 | XMS_ITS | Encounter Summary ---
Author Organization [employer] Address [address] [facility] 7 [place] [address] Care Team Providers Care Senior Storage Administrator Name Role Phone Abimbola Sabillon MD Primary Care Provider [phone]- [phone] Encounter Details Date Type Department Care Team ([facility] st Contact Info) Description 07/15/2024 Orders Only [facility] MED & PEDS [address] [place], [place] [phone] Abimbola Sabillon MD 505 [place] [address] Psoriasis (Primary Dx) Social History Tobacco Use [...] documented as of this encounter Care Teams Senior Storage Administrator Relationship Specialty Start Date End Date Abimbola Sabillon MD [address] [place] [address] PCP - General Internal Medicine 01/17/24 documented as of this encounter
--- OUTSIDE RECORDS SUMMARY | 2025-06-24 14:01 | XMS_ITS | Encounter Summary ---
Author Organization [employer] Address [address] [place] [address] Care Team Providers Care Rack Room Worker Name Role Phone Elizabeth Marquez MD Primary Care Provider [phone] Abimbola Sabillon MD Primary Care Provider [phone]- [phone] Encounter Details Date Type Department Care Team ([facility] st Contact Info) Description 07/24/2023 Orders Only [facility] CHC MED & PEDS [address] [place], [place] [phone] Abimbola Sabillon MD 505 [place], [place] [phone] Psoriasis (Primary Dx) Social History Tobacco Use [...] Results * T-SPOT??.TB (01/29/2024 11:09 AM EDT) T Spot TB Negative Negative [facility] Comment:A negative test resu lt [...] as aquantitative test. TS PANEL A 0 [facility] TS PANEL B 0 [facility] Negative Control Passed [facility] Positive Control Passed [facility] Comment:For additional infor mation, please refer tohttp://education.[employer]/faq/QUQ237(This link is being provided for informational/educational purposes only.)THIS TEST WAS PERFORMED AT:[id number] [place] [address]HULVZZIKORY SANCHEZ MD,PHD 01/29/2024 11:0 9 AM EDT 01/29/2024 2:22 PM EDT us Abimbola Sabillon MD LAB BLOOD ORDERABLES Final Result [facility] [address] [place] [phone] documented in this encounter Visit Diagnoses Diagnosis Psoriasis- Primary Other psoriasis documented in this encounter Additional Health Concerns Assessment Noted Time PHQ-9 Depression Total Score: 0 08/16/20 22 9:06 AM EST documented as of this encounter Care Teams Rack Room Worker Relationship Specialty Start Date End Date Elizabeth Marquez MD [address] [place] [address] PCP - General Family Medicine 01/13/20 01/16/24 Abimbola Sabillon MD [address] [place] [address] PCP - General Internal Medicine 01/17/24 documented as of this encounter
--- OUTSIDE RECORDS SUMMARY | 2025-06-24 14:02 | XMS_ITS | Encounter Summary ---
Author Organization [employer] Address 75 [facility] 7 [place] [address] Care Team Providers Care Cafeteria Supervisor Name Role Phone Abimbola Sabillon MD Primary Care Provider +1- [phone] Encounter Details Date Type Department Care Team ([facility] st Contact Info) Description 03/04/2025 Orders Only [facility] CHC MED & PEDS [address] [place], [place] [phone] Abimbola Sabillon MD 505 [place] [address] Attention deficit disorder, unspecified type Social History [...] documented as of this encounter Care Teams Cafeteria Supervisor Relationship Specialty Start Date End Date Abimbola Sabillon MD [address] [place] [address] PCP - General Internal Medicine 01/17/24 documented as of this encounter
--- OUTSIDE RECORDS SUMMARY | 2025-06-24 14:02 | XMS_ITS | Clinical Summary ---
Author Organization [employer] Address [address] [place] [address] 7 [place] [address] Care Team Providers Care Special Procedures Tech Name Role Phone Abimbola Sabillon MD Primary Care Provider [phone]- [phone] Allergies Active Allergy Reactions Criticality Noted Date Comments Doxycycline 04/18/2019 Atomoxetine Nausea 11/12/2024 Medications * This document contains information received from the source organization and may not represent a complete record from that organization. ergocalciferol (Vitamin D2) 1.25 MG (81448 UT) capsuleIndicatio ns:Low vitamin D level Take 1 capsule (1.25 mg) by mouth 1 (one) time per week. 12 capsule 024 Active polyethylene glycol, PEG, 3350 (GaviLAX) 17 GM/SCOOP powderIndication s:Irritable bowel syndrome with diarrhea TAKE 17G BY MOUTH EVERY DAY MIXED WITH 8 OZ. WATER, JUICE, SODA, COFFEE OR TEA NEEDED FOR CONSTIPATION 510 g 11 024 Active Blood Pressure kitIndications:E levated BP without diagnosis of hypertension To check the BP daily 1 kit 024 Active valACYclovir (Valtrex) 500 MG tabletIndication s:Cold sore 2 g twice daily for 1 day 4 tablet 5 024 Active cholecalciferol (Vitamin D-3) 25 MCG (1000 UT) tablet Take 1 tablet (25 mcg) by mouth Once per day. 60 tablet 11 025 Active ketoconazole (NIZOral) 2 % shampoo Apply topically 2 (two) times a week. 120 mL 11 025 Active clobetasol (Temovate) 0.05 % ointmentIndicati ons:Psoriasis Apply topically 2 times daily. 60 g 025 Active clobetasol (Temovate) 0.05 % external solutionIndicati ons:Psoriasis Apply topically 2 times daily. 50 mL 3 025 Active ustekinumab (Stelara) 45 MG/0.5ML injectionIndicat ions:Psoriasis 45 mg on day 1, 45 mg Day 30 followed by 45 mg q 3 months. 0.5 mL 025 Active Tri-Estarylla 0.18/0.215/0.25 MG-35 MCG tabletIndication s:Encounter for other general counseling or advice on contraception TAKE 1 TABLET BY MOUTH EVERY DAY 84 tablet 3 025 Active hydroCHLOROthiaz wendy 12.5 MG tabletIndication s:Elevated BP without diagnosis of hypertension TAKE 1 TABLET BY MOUTH EVERY DAY 30 tablet 10 025 Active meloxicam (Mobic) 15 MG tabletIndication s:Pain in other joint TAKE 1 TABLET (15 MG) BY MOUTH ONCE PER DAY. 30 tablet 3 025 Active amLODIPine (Norvasc) 5 MG tabletIndication s:Primary hypertension TAKE 1 TABLET BY MOUTH EVERY DAY 90 tablet 3 025 Active Fluocinolone Acetonide Scalp ([place]-Smoothe/F S Scalp) 0.01 % oilIndications:P soriasis To use on the scalp 2 times a week. 118 mL 2 025 Active amphetamine-dext roamphetamine (Adderall) 20 MG tabletIndication s:Attention deficit disorder, unspecified type Take 1 tablet (20 mg) by mouth Once per day. 30 tablet 025 2024 Active Fluocinolone Acetonide Scalp ([place]-Smoothe/F S Scalp) 0.01 % oilIndications:P soriasis To use on the scalp 2 times a week. 118 mL 2 024 2024 Discontinued(R eorder (will not trigger notification to Pharmacy)) amphetamine-dext roamphetamine (Adderall) 20 MG tabletIndication s:Attention deficit disorder, unspecified type Take 1 tablet (20 mg) by mouth Once per day. 30 tablet 025 2024 Discontinued(R eorder (will not trigger notification to Pharmacy)) Active Problems Problem Noted Date Diagnosed Date Other specified attention de ficit hyperactivity disorder (ADHD) 02/06/2025 Primary hypertension 07/11/2024 Moderate depressive disorder 03/05/2024 [...] , Patient to reach out to [facility] team as needed, Patient to engage in OP therapy , and Patient to reach out to [facility] as needed Mild anxiety 03/05/2024 Irritable bowel syndrome with diarrhea 2 Psoriasis 07/23/2018 Encounters Date Type Department Care Team Description 06/01/[address] [facility] MED & PEDS [address] [place] [address] Abimbola Sabillon MD Psoriasis; Attention deficit disorder, unspecified type 05/24/[address] [facility] [address] [place] [address] Abimbola Sabillon MD Primary hypertension 05/15/2025 2:30 PM EDT Office Visit [facility] MED & PEDS [address] [place] [address] Abimbola Sabillon MD Primary hypertension (Primary Dx); Other specified attention deficit hyperactivity disorder (ADHD); Unintentional weight loss; Dry eyes; Irritable bowel syndrome with constipation 05/15/2025 Travel 05/04/2025 Telephone [facility] [address] [place], [place] [phone] [place] 04/24/2025 Orders Only [facility] & P[facility] [address] [place] [address] Abimbola Sabillon MD Attention deficit disorder, unspecified type (Primary Dx) 04/01/2025 Orders Only [facility] [address] [place] [address] Abimbola Sabillon MD Attention deficit disorder, unspecified type (Primary Dx) from Last 3 Months Family History Medical History Relation Name Comments Adjustment Disorder with Mix ed Anxiety and Depressed Mood Brother Hyperlipidemia Father Prostate cancer Father Skin cancer Father Stroke Father's Sister Heart disease Mother Hyperlipidemia Mother Relation Name Status Comments Brother Father Father's Sister Mother Social History Tobacco Use Types Packs/Day Years Used Date Smoking Tobacco: Former Cigarettes Q uit: 2005 Passive Smoke Exposure: Past Smokeless Tobacco: Never Tobacco Cessation:Counseling Given: Not [...] Sign Reading Time Taken Comments Blood Pressure 138/88 05/15/2025 2:37 PM EDT Pulse 76 05/15/2025 2:37 PM EDT Temperature 36.9 C (98.5 F) 05/15/2025 2:37 PM EDT Respiratory Rate 16 05/15/2025 2:37 PM EDT Oxygen Saturation 98% 02/06/2025 4:14 PM EDT Inhaled Oxygen Concentration - - Weight 47.2 kg (104 lb) 05/15/2025 2:37 PM EDT Height 161.3 cm (5' 3.5 ) 02/06/2025 4:14 PM EDT Body Mass Index 18.13 02/06/2025 4:14 PM EDT Plan of Treatment Health Maintenance Due Date Last Done Comments HIV Screening 1987 Alcohol/Substance Use Screening 1999 HPV Vaccines (1 - 3-dose series) 2002 Hepatitis C Screening 2005 COVID-19 Vaccine (2023-2 5 season) 2025 Influenza Vaccine (#1) 2025 Depression Monitoring 05/08/2025 11/05/2024 , 11/05/2024 Cervical Cancer Screening 07/02/2025 Family Planning (PISQ) 07/02/2025 07/02/2024 Pap Smear 07/02/2025 07/02/2024 DTaP/Tdap/Td Vaccines (1 - Tdap) 07/11/2025 Postponed from 2006 (Patient Refused) SDOH Screening 11/05/2025 11/05/2024 Disability Screening 01/27/2026 01/27/2025 Tobacco Screening 05/15/2026 05/15/2025 HPV/Cotest 07/02/2029 07/02/2024, 09/25/2017 Lipid Panel 02/11/2030 02/11/2025, 01/17/2024, 10/27/2021 Zoster Vaccines (1 of 2) [...] Years) and At-Risk Patients (6 to 49) Years Aged Out No longer eligible b ased on patient's age to complete this topic RSV under 20 months Aged Out No longe r eligible based on patient's age to complete this topic Rotavirus Vaccines Aged Out No longer eligible based on patient's age to complete this topic Procedures Procedure Name Priority Date/Time Associated Diagnosis Comments LIPID PANEL, STANDARD Routine 02/11/2025 2:05 PM EDT Primary hypertension PAP SMEAR Routine 07/02/2024 11:40 AM EST Cervical cancer screening HPV MRNA E6/E7 REFLEX TO HPV 16, 18/45 Routine 07/02/2024 12:00 AM EST from Last 3 Months or Most Recently Relevant to Health Maintenance Results * (ABNORMAL) Lipid Panel, Standard (02/11/2025 2:05 PM EDT) Triglycerides 80 <150 mg/dL [facility] Comment:Desirable Triglyceri de: less than 150 mg/dLBorderline High Triglyceride 150-199 mg/dLHigh Triglyceride: 200-499 mg/dLVery High Triglyceride: greater than or equal to 5OO mg/dL Cholesterol 211(H) <200 mg/dL [facility] Comment:Desirable Cholestero l: less than 200 mg/dLBorderline High Cholesterol: 200-239 mg/dLHigh Cholesterol: greater than 239 mg/dL LDL Cholesterol Calculated 119(H) <100 mg/dL [facility] Comment:Desirable LDL: less than 100 mg/dLNear Optimal/Above Optimal LDL: 110- 129 mg/dLBorderline High LDL: 130-159 mg/dLHigh LDL: 160-189 mg/dLVery High LDL: greater than or equal to 190 mg/dL HDL Cholesterol 76 >40 mg/dL [facility] Comment:Desirable HDL: great er than 40 mg/dL Note: This HDL assay may give artificially low results in patients with liver disease. Blood Venous blood specimen / Unknown 02/11/2025 2:05 PM EDT 02/11/2025 5:53 PM EDT us Abimbola Sabillon MD LAB BLOOD ORDERABLES Final Result [facility] [address] [place] [phone] * Pap Smear (07/02/2024 11:40 AM EST) Swab Cervical swab / Unknown 07/02/2024 11:40 AM EST 07/03/2024 9:30 AM EST Narrative [facility] - 07/07/2024 10:19 AM EST ----- ------- Name: Susana Mckeon Age/Sex: 38/F : 1985 Unit#: [id number] Attend Dr: Re07/02/24 Status: PRE [facility] Disch: ----- ------- SPEC : [id number] RECD: 07/03/24 STATUS: TANNER ARMENDARIZ NUM: [id number] MARI: 07/02/24-[address]: DAMARIS WAGNER [facility] ENTERED: 07/03/24 SP TYPE: Pap Smr OT DR: ORDERED: Pap Smear Interpretation Satisfactory for evaluation. Negative for intraepithelial lesion or malignancy. No endocervical cells seen. Coccobacilli consistent with shift in vaginal nando. HPV High Risk: Negative HPV Genotyping 16: Negative HPV Genotyping 18: Negative Clinical Information LMP: Unknown date Previous PAP test: Unknown date/findings Material Received ThinPrep-Cervical ----- ------- Signed (signature on file) SEBASTIAN Cedeño (ASCP) 07/07/24 1019 ----- ------- END OF REPORT Damaris CRISTINAM LAB CYTOLOGY ORDERABLES F inal Result Performing Organization Address [facility]/ZIP Co de Phone Number [facility] [address] [place] [address] [phone] * HPV mRNA E6/E7 w/Reflex to HPV Genotypes 16, 18/45 (07/02/2024 12:00 AM EST) Historical Provider MD LAB CYTOLOGY ORDERABLES F inal Result Performing Organization Address [facility]/ZIP Co de Phone Number [facility] [address] [place] [address] [phone] from Last 3 Months or Most Recently Relevant to Health Maintenance Insurance Care Teams Special Procedures Tech Relationship Specialty Start Date End Date Abimbola Sabillon MD [address] [place] [address] PCP - General Internal Medicine 01/17/24
--- OUTSIDE RECORDS SUMMARY | 2025-06-24 14:02 | XMS_ITS | Encounter Summary ---
Author Organization [employer] Address 75 [facility] 7 [place] [address] Care Team Providers Care Vault Custodian Name Role Phone Abimbola Sabillon MD Primary Care Provider [phone] [phone] Encounter Details Date Type Department Care Team ([facility] st Contact Info) Description 03/03/2024 Orders Only [facility] CHC MED & PEDS [address] [place], [place] [phone] Abimbola Sabillon MD [address] [place] [address] Psoriasis Social History Tobacco Use Types Packs/Day [...] AM EDT documented as of this encounter Functional Status * Over the past 2 weeks, how often have you been bothered by any of the following problems? Question Answer Date of Assessment Author Patient Health Questionnaire-2 Score 0 02/17 3:38 PM EDT Viral Bryant * If you checked off any problems on this questionnaire so far, Question Answer Date of Assessment Author How difficult have these problems made it for you to do your work, take care of things at home, or get along with other people? Somewhat difficult 03/05/2024 3:38 PM EDT Viral Bryant * Over the last 2 weeks, how often have you been bothered by any of the following problems? Question Answer Date of Assessment Author Feeling nervous, anxious, or on edge 1 02/17 3:38 PM EDT Viral Bryant Not being able to stop or co ntrol worrying 1 03/05/2024 3:38 PM EDT Viral Bryant Worrying too much about diff erent things 1 03/05/2024 3:38 PM EDT Viral Bryant Trouble relaxing 2 03/05/2024 3:38 PM EDT Viral Landaverde Being so restless that it is hard to sit still 3 03/05/2024 3:38 PM EDT Viral Bryant Becoming easily annoyed or irritable 1 02/17 3:38 PM EDT Viral Bryant Feeling afraid as if somethi ng awful might happen 0 03/05/2024 3:38 PM EDT Viral Bryant MARY ELLEN-7 Total Score 9 03/05/2024 3:38 PM EDT Viral Bryant * Over the past 2 weeks, how often have you been bothered by any of the following problems? Question Answer Date of Assessment Author Little interest or pleasure in doing things Not at all 03/05/2024 3:38 PM EDT Viral Bryant Feeling down, depressed, or hopeless Not at all 03/05/2024 3:38 PM EDT Viral Bryant Trouble falling or staying asleep, or sleeping too much Nearly every day 03/05/2024 3:38 PM EDT Viral Bryant Feeling tired or having little energy Nearly every day 03/05/2024 3:38 PM EDT Viral Bryant Poor appetite or overeating Not at all 03/05/2024 3: 38 PM EDT Viral Bryant Feeling bad about yourself - or that you are a failure or have let yourself or your family down Not at all 03/05/2024 3:38 PM EDT Viral Bryant Trouble concentrating on things, such as reading the newspaper or watching television Nearly every day 03/05/2024 3:38 PM CLINTT Viral Bryant Moving or speaking so slowly that other people could have noticed? Or the opposite - being so fidgety or restless that you have been moving around a lot more than usual. More than half the days 03/05/2024 3:38 PM Viral Magaña Thoughts that you would be better off or hurting yourself in some way Not at all 03/05/2024 3:38 PM EDT Viral Bryant Patient Health Questionnaire-9 Score 11 03/05/2024 3:38 PM Viral Magaña documented as of this encounter Plan of Treatment Not on file documented as of this encounter Visit Diagnoses Diagnosis Psoriasis Other psoriasis documented in this encounter Additional Health Concerns Assessment Noted Time PHQ-9 Depression Total Score: 0 08/16/20 22 9:06 AM EST documented as of this encounter Care Teams Vault Custodian Relationship Specialty Start Date End Date Abimbola Sabillon MD [address] [place] [address] PCP - General Internal Medicine 01/17/24 documented as of this encounter
--- OUTSIDE RECORDS SUMMARY | 2025-06-24 14:02 | XMS_ITS | Encounter Summary ---
Author Organization [employer] Address 75 [facility] 7 [place] [address] Care Team Providers Care Lumber Puller Name Role Phone Abimbola Sabillon MD Primary Care Provider [phone]- [phone] Encounter Details Date Type Department Care Team ([facility] st Contact Info) Description 04/01/2025 Orders Only [facility] MED & PEDS [address] [place], [place] [phone] Abimbola Sabillon MD [address] [place] [address] Attention deficit disorder, unspecified type (Primary Dx) [...] documented as of this encounter Care Teams Lumber Puller Relationship Specialty Start Date End Date Abimbola Sabillon MD [address] [place] [address] PCP - General Internal Medicine 01/17/24 documented as of this encounter
--- OUTSIDE RECORDS SUMMARY | 2025-06-24 14:02 | XMS_ITS | Encounter Summary ---
Author Organization [employer] Address 75 [facility] 7 [place] [address] Care Team Providers Care Oil Well Service Operator Helper Name Role Phone Abimbola Sabillon MD Primary Care Provider +1- [phone] Encounter Details Date Type Department Care Team ([facility] st Contact Info) Description 04/24/2025 Orders Only [facility] MED & PEDS [address] [place], [place] [phone] Abimbola Sabillon MD 505 [place] [address] Attention deficit disorder, unspecified type (Primary Dx) [...] documented as of this encounter Care Teams Oil Well Service Operator Helper Relationship Specialty Start Date End Date Abimbola Sabillon MD [address] [place] [address] PCP - General Internal Medicine 01/17/24 documented as of this encounter
[2025-06-24 14:15] LABS: MANUAL DIFF FLAG NO
[2025-06-24 14:18] LABS: Hematocrit 40.1 % (37.0-47.0); Hemoglobin 13.2 g/dl (12.0-16.0); Imm Gran Abs Auto 0.02 X10*3/uL (0.00-0.03); Imm Gran Pct Auto 0.3 % (0.0-0.4); Lymphocytes Absolute Auto 2.0 X10*3/uL (1.2-4.9); Mean Corpuscular HGB Conc 32.9 g/dl (31.0-35.0); Mean Corpuscular Hemoglobin 28.2 pg (27.0-33.0); Mean Corpuscular Volume 85.7 fL (80.0-98.0); NRBC Abs Auto 0.000 X10*3/uL (0.0-0.012); NRBC Pct Auto 0.0 /100WBC (0.0-0.2); Platelet Count 297 X10*3/uL (160-400); Red Blood Count 4.68 X10*6/uL (4.20-5.50); White Blood Count 6.0 X10*3/uL (4.8-10.8)
[2025-06-24 14:38] LABS: Alanine Aminotransferase 14 U/L (0-31); Albumin Level 4.7 g/dL (3.5-5.0); Alkaline Phosphatase 44 U/L (39-117); Anion Gap 10 (12-20); Aspartate Amino Transferase 23 U/L (5-31); Blood Urea Nitrogen 17 mg/dL (9-16); Calcium 10.0 mg/dL (8.4-10.2); Carbon Dioxide 30 mmol/L (22-29); Chloride 104 mmol/L (96-108); Estimated Glomerular Filt Rate > 60; Potassium 3.9 mmol/L (3.3-5.1); Sodium 140 mmol/L (135-145); Total Protein 7.3 g/dL (6.5-8.0)
[2025-06-24 14:45] LABS: Parathyroid Hormone Intact 25.6 pg/mL (8.7-77.1)
== END 2025-06-24 11:29 | disposition home or self-care (01) ==
LOC: HO.CHCLDS 11:28
PROVIDERS: Visit Provider Internal Medicine
DX: E83.52 Hypercalcemia (principal); R63.4 Abnormal weight loss
CPT/HCPCS: 36415; 80053; 83970; 84443; 85025

== ENCOUNTER 2025-07-01 15:59 | Outpatient (REF) | payer OTHER, SELFPAY ==
--- OUTSIDE RECORDS SUMMARY | 2025-07-01 18:55 | XMS_ITS | Clinical Summary ---
Author Organization [facility] Address [address] [place] [address] Phone Care Team Providers Care Certified Art Therapist Name Role Phone Abimbola Sabillon MD Primary Care Provider [phone] [phone] Encounters Date Type Department Care Team Description 05/25/2025 Telephone Gastroenterology - [address] [address] Kar Claire MD from Last [...] Years Used Date Smoking Tobacco: Former Cigarettes 0.1 Q uit: 08/20/2005 Smokeless Tobacco: Never Alcohol [...] Office Visit Gastroenterology - [address] [facility] [address] [place] [address] Lupe Ulloa, JULIAN [address] [facility] [address] [place] [address] Health Maintenance Due Date Last Done Comments DTaP,Tdap,and Td Vaccines (3 - Td or Tdap) 09/13/2021 09/13/2011, 12/30/1999 HIV Screening 05/29/2024 Hepatitis C Screening 05/29/2024 Social Influencers of Health Screening 05/29/2024 Depression Screening 08/20/2024 COVID-19 Vaccine (1 - 2024-2 6 season) 2025 Influenza Vaccine (#1) 2025 Cervical [...] patient's age to complete this topic Insurance [facility] Care Teams Certified Art Therapist Relationship Specialty Start Date End Date Abimbola Sabillon MD [address] [place] [address] PCP - General Internal Medicine 07/09/24
--- OUTSIDE RECORDS SUMMARY | 2025-07-01 18:55 | XMS_ITS | Encounter Summary ---
Author Organization [employer] Address [address] [place] [address] Care Team Providers Care Cement Cutter Name Role Phone Elizabeth Marquez MD Primary Care Provider [phone] Abimbola Sabillon MD Primary Care Provider [phone]- [phone] Encounter Details Date Type Department Care Team (Late st Contact Info) Description 2022 Orders Only [facility] [address] [place] [address] Abimbola Sabillon MD [address] [place], [place] [phone] Psoriasis (Primary Dx) Social History Tobacco Use [...] psoriasis documented in this encounter Care Teams Cement Cutter Relationship Specialty Start Date End Date Elizabeth Marquez MD [address] [place] [address] PCP - General Family Medicine 01/13/20 01/16/24 Abimbola Sabillon MD [address] [place] [address] PCP - General Internal Medicine 01/17/24 documented as of this encounter
--- OUTSIDE RECORDS SUMMARY | 2025-07-01 18:55 | XMS_ITS | Encounter Summary ---
Author Organization [employer] Address 75 [facility] 7 [place] [address] Care Team Providers Care Helicopter Pilot Name Role Phone Abimbola Sabillon MD Primary Care Provider +1 [phone] Encounter Details Date Type Department Care Team ([facility] st Contact Info) Description 11/11/2024 Orders Only [facility] MED[facility]INE [address] [place] [address] Abimbola Sabillon MD [address] [place] [address] Attention deficit disorder, unspecified type (Primary Dx) [...] documented as of this encounter Care Teams Helicopter Pilot Relationship Specialty Start Date End Date Abimbola Sabillon MD [address] [place] [address] PCP - General Internal Medicine 01/17/24 documented as of this encounter
--- OUTSIDE RECORDS SUMMARY | 2025-07-01 18:55 | XMS_ITS | Encounter Summary ---
Author Organization [employer] Address 75 [facility] 7 [place] [address] Care Team Providers Care Black Leather Trimmer Name Role Phone Abimbola Sabillon MD Primary Care Provider [phone]- [phone] Encounter Details Date Type Department Care Team ([facility] st Contact Info) Description 07/15/2024 Orders Only [facility]S [address] [place], [place] [phone] Abimbola Sabillon MD [address] [place] [address] Psoriasis (Primary Dx) Social History Tobacco Use [...] documented as of this encounter Care Teams Black Leather Trimmer Relationship Specialty Start Date End Date Abimbola Sabillon MD [address] [place] [address] PCP - General Internal Medicine 01/17/24 documented as of this encounter
--- OUTSIDE RECORDS SUMMARY | 2025-07-01 18:55 | XMS_ITS | Encounter Summary ---
Author Organization [employer] Address [address] [place] [address] Care Team Providers Care Fur Stretcher Name Role Phone Abimbola Sabillon MD Primary Care Provider [phone] Reason for Referral * Consultation (Routine) - Closed Specialty Diagnoses / Procedures Referred By Marissa gilliland Referred To Contact Rheumatology Diagnoses Psoriasis Abimbola Sabillon MD [address] [place] [address] Phone: tel: fax: [facility] [address] [place] [address] Phone: tel: fax: Referral ID Status Reason Start Date Expiration Date V isits Requested Visits Authorized [id number] Closed Specialty Services Required 10/29/2024 10/29/2025 1 1 * Consultation (Urgent) - Closed Specialty Diagnoses / Procedures Referred By Marissa gilliland Referred To Contact Dermatology Diagnoses Psoriasis Abimbola Sabillon MD [address] [place] [address] Phone: tel: fax: Kar Macias MD [address] [place] [address] Phone: tel: fax: Referral ID Status Reason Start Date Expiration Date V isits Requested Visits Authorized [id number] Closed Specialty Services Required 10/27/2024 10/27/2025 1 1 Encounter Details Date Type Department Care Team (Late st Contact Info) Description 10/23/2024 Orders Only [facility] MED[facility]INE [address] [place] [address] Abimbola Sabillon MD [address] [place] [address] Psoriasis Social History Tobacco Use Types Packs/Day [...] documented as of this encounter Care Teams Fur Stretcher Relationship Specialty Start Date End Date Abimbola Sabillon MD [address] [place] [address] PCP - General Internal Medicine 01/17/24 documented as of this encounter
--- OUTSIDE RECORDS SUMMARY | 2025-07-01 18:55 | XMS_ITS | Encounter Summary ---
Author Organization [employer] Address [address] [place] [address] Care Team Providers Care Jogger Operator Name Role Phone Abimbola Sabillon MD Primary Care Provider [phone] Reason for Referral * Consultation (Routine) - Closed Specialty Diagnoses / Procedures Referred By Contac t Referred To Contact Rheumatology Diagnoses Psoriasis Psoriatic arthritis (CMS/HCC) ([facility]) Abimbola Sabillon MD [address] [place] [address] Phone: tel: fax: [facility] Rheumatology [address] [place], [place] Phone: tel: fax: Referral ID Status Reason Start Date Expiration Date V isits Requested Visits Authorized [id number] Closed Specialty Services Required 12/23/2024 12/23/2025 1 1 Encounter Details Date Type Department Care Team (Late st Contact Info) Description 12/23/2024 Orders Only [facility] CHC MED & PEDS [address] [place], [place] [phone] Abimbola Sabillon MD [address] [place], [place] [phone] Psoriasis (Primary Dx); Psoriatic arthritis (CMS/HCC) Social [...] documented as of this encounter Care Teams Jogger Operator Relationship Specialty Start Date End Date Abimbola Sabillon MD [address] [place], [place] [address] [address] PCP - General Internal Medicine 01/17/24 documented as of this encounter
--- OUTSIDE RECORDS SUMMARY | 2025-07-01 18:55 | XMS_ITS | Encounter Summary ---
Author Organization [email or web address] Address [address] [facility] 7 [place] [address] Care Team Providers Care Employment Educational Coord Name Role Phone Abimbola Sabillon MD Primary Care Provider [phone] Encounter Details Date Type Department Care Team ([facility] st Contact Info) Description 01/30/2025 Orders Only [facility] CHC MED & PEDS [address] [place], [place] [phone] Abimbola Sabillon MD [address] [place] [address] Attention deficit disorder, unspecified type (Primary Dx); [...] Routine Hypercalcemia Expected: 02/12/2025 (Approximate), Expires: 02/12/2026 documented as of this encounter Procedures Procedure Name Priority Date/Time Associated Diagnosis Comments PTH, INTACT WITHOUT CALCIUM Routine 06/24/2025 11:31 AM EST Hypercalcemia documented in this encounter Results * PTH, Intact Without Calcium (06/24/2025 11:31 AM EST) Parathyroid Hormone, Intact 25.6 8.7 - 77.1 pg/mL [facility] Blood Venous blood specimen / Unknown 06/24/2025 11:31 AM EST 06/24/2025 2:06 PM EST us Abimbola Sabillon MD LAB BLOOD ORDERABLES Final Result [facility] [address] [place] [phone] documented in this encounter Visit Diagnoses Diagnosis Attention deficit disorder, unspecified type- Primary Hypercalcemia documented in this encounter Additional Health Concerns Assessment Noted Time PHQ-9 Depression Total Score: 16 025 11:15 AM EDT documented as of this encounter Care Teams Employment Educational Coord Relationship Specialty Start Date End Date Abimbola Sabillon MD [address] [place] [address] PCP - General Internal Medicine 01/17/24 documented as of this encounter
--- OUTSIDE RECORDS SUMMARY | 2025-07-01 18:55 | XMS_ITS | Encounter Summary ---
Author Organization [employer] Address [address] [place] [address] Care Team Providers Care Dental Coordinator Name Role Phone Elizabeth Marquez MD Primary Care Provider [phone] Abimbola Sabillon MD Primary Care Provider [phone] Encounter Details Date Type Department Care Team ([facility] st Contact Info) Description 07/24/2023 Orders Only [facility] CHC MED & PEDS [address] [place], [place] [phone] Abimbola Sabillon MD [address] [place], [place] [phone] Psoriasis (Primary Dx) Social History Tobacco Use [...] AM EDT) T Spot TB Negative Negative [facility] Comment:A negative test resu lt [...] as aquantitative test. TS PANEL A 0 [facility] TS PANEL B 0 [facility] Negative Control Passed [facility] Positive Control Passed [facility] Comment:For additional infor mation, please refer tohttp://education.GenAudio/faq/BXC647(This link is being provided for informational/educational purposes only.)THIS TEST WAS PERFORMED AT:[employer] [place] [address]CKDGCZZKORY SANCHEZ MD,PHD 01/29/2024 11:0 9 AM EDT 01/29/2024 2:22 PM EDT us Abimbola Sabillon MD LAB BLOOD ORDERABLES Final Result [facility] [address] [place] [phone] documented in this encounter Visit Diagnoses Diagnosis Psoriasis- Primary Other psoriasis documented in this encounter Additional Health Concerns Assessment Noted Time PHQ-9 Depression Total Score: 0 08/16/20 22 9:06 AM EST documented as of this encounter Care Teams Dental Coordinator Relationship Specialty Start Date End Date Elizabeth Marquez MD [address] [place] [address] PCP - General Family Medicine 01/13/20 01/16/24 Abimbola Sabillon MD [address] [place] [address] PCP - General Internal Medicine 01/17/24 documented as of this encounter
--- OUTSIDE RECORDS SUMMARY | 2025-07-01 18:55 | XMS_ITS | Encounter Summary ---
Author Organization [employer] Address [address] [facility] 7 [place] [address] Care Team Providers Care Sap Abap Developer Name Role Phone Abimbola Sabillon MD Primary Care Provider [phone] Encounter Details Date Type Department Care Team ([facility] st Contact Info) Description 02/12/2024 Orders Only [facility] CHC MED & PEDS [address] [place], [place] [phone] Abimbola Sabillon MD [address] [place] [address] Social History Tobacco Use Types Packs/Day Years [...] documented as of this encounter Care Teams Sap Abap Developer Relationship Specialty Start Date End Date Abimbola Sabillon MD [address] [place] [address] PCP - General Internal Medicine 01/17/24 documented as of this encounter
--- OUTSIDE RECORDS SUMMARY | 2025-07-01 18:55 | XMS_ITS | Clinical Summary ---
Author Organization [employer] Address [address] [place] [address] 7 [place] [address] Care Team Providers Care Conservation Policy Analyst Name Role Phone Abimbola Sabillon MD Primary Care Provider [phone] Allergies Active Allergy Reactions Criticality Noted Date Comments Doxycycline 04/18/2019 Atomoxetine Nausea 11/12/2024 Medications * This document contains information received from the source organization and may not represent a complete record from that organization. ergocalciferol (Vitamin D2) 1.25 MG (35062 UT) capsuleIndication s:Low vitamin D level Take 1 capsule (1.25 mg) by mouth 1 (one) time per week. 12 capsule 01/17/20 24 Active polyethylene glycol, PEG, 3350 (GaviLAX) 17 GM/SCOOP powderIndications :Irritable bowel syndrome with diarrhea TAKE 17G BY MOUTH EVERY DAY MIXED WITH 8 OZ. WATER, JUICE, SODA, COFFEE OR TEA NEEDED FOR CONSTIPATION 510 g 11 01/17/20 24 Active Blood Pressure kitIndications:El evated BP without diagnosis of hypertension To check the BP daily 1 kit 01/17/20 24 Active valACYclovir (Valtrex) 500 MG tabletIndications :Cold sore 2 g twice daily for 1 day 4 tablet 5 01/29/20 24 Active cholecalciferol (Vitamin D-3) 25 MCG (1000 UT) tablet Take 1 tablet (25 mcg) by mouth Once per day. 60 tablet 11 10/15/19 25 Active ketoconazole (NIZOral) 2 % shampoo Apply topically 2 (two) times a week. 120 mL 11 10/16/19 25 Active clobetasol (Temovate) 0.05 % ointmentIndicatio ns:Psoriasis Apply topically 2 times daily. 60 g 10/28/19 25 Active clobetasol (Temovate) 0.05 % external solutionIndicatio ns:Psoriasis Apply topically 2 times daily. 50 mL 3 11/06/19 25 Active ustekinumab (Stelara) 45 MG/0.5ML injectionIndicati ons:Psoriasis 45 mg on day 1, 45 mg Day 30 followed by 45 mg q 3 months. 0.5 mL 11/06/19 25 Active Tri-Estarylla 0.18/0.215/0.25 MG-35 MCG tabletIndications :Encounter for other general counseling or advice on contraception TAKE 1 TABLET BY MOUTH EVERY DAY 84 tablet 3 01/14/20 25 Active hydroCHLOROthiazi de 12.5 MG tabletIndications :Elevated BP without diagnosis of hypertension TAKE 1 TABLET BY MOUTH EVERY DAY 30 tablet 10 01/28/20 25 Active meloxicam (Mobic) 15 MG tabletIndications :Pain in other joint TAKE 1 TABLET (15 MG) BY MOUTH ONCE PER DAY. 30 tablet 3 02/26/20 25 Active amLODIPine (Norvasc) 5 MG tabletIndications :Primary hypertension TAKE 1 TABLET BY MOUTH EVERY DAY 90 tablet 3 05/25/20 25 Active Fluocinolone Acetonide Scalp (Tri-City-Smoothe/FS Scalp) 0.01 % oilIndications:Ps oriasis To use on the scalp 2 times a week. 118 mL 2 06/02/20 25 Active amphetamine-dextr oamphetamine (Adderall) 20 MG tabletIndications :Attention deficit disorder, unspecified type Take 1 tablet (20 mg) by mouth Once per day. 30 tablet 06/02/20 25 025 Active Active Problems Problem Noted Date Diagnosed Date [...] intervention , Patient to reach out to [facility] team as needed, Patient to engage in OP therapy , and Patient to reach out to [facility] as needed Mild anxiety 03/05/2024 Irritable bowel syndrome with diarrhea 2 Psoriasis 07/23/2018 Encounters Date Type Department Care Team Description 06/26/2025 Results Follow-Up [facility] MED & PEDS [address] [place] [phone] Abimbola Sabillon MD PTH, Intact Without Calcium 06/01/2025 Refill [facility] MED & PEDS [address] [place] [address] Abimbola Sabillon MD Psoriasis; Attention deficit disorder, unspecified type 05/24/2025 Refill [facility] MED & PEDS [address] [place] [address] Abimbola Sabillon MD Primary hypertension 05/15/2025 2:30 PM EDT Office Visit [facility] MED & PEDS [address] [place] [phone] Abimbola Sabillon MD Primary hypertension (Primary Dx); Other specified attention deficit hyperactivity disorder (ADHD); Unintentional weight loss; Dry eyes; Irritable bowel syndrome with constipation 05/15/2025 Travel 05/04/2025 Telephone [facility] [address] [place] [address] Yi Mcintyre [place] 04/24/2025 Orders Only [facility] CHC MED & PEDS [address] [place] [address] Abimbola Sabillon MD Attention deficit disorder, unspecified type (Primary Dx) 04/01/2025 Orders Only [facility] MED & PEDS [address] [place] [address] Abimbola Sabillon MD Attention deficit disorder, unspecified [...] Smoking Tobacco: Former Cigarettes Q uit: 2004 Passive Smoke Exposure: Past Smokeless Tobacco: Never [...] 2002 Hepatitis C Screening 2005 COVID-19 Vaccine (1 - 2024-2 6 season) 2025 Influenza Vaccine (#1) 2025 Depression [...] Procedure Name Priority Date/Time Associated Diagnosis Comments TSH W/REFLEX TO FT4 Routine 06/24/2025 1 1:31 AM EST Unintentional weight loss COMPREHENSIVE METABOLIC PANEL Routine 06/24/2025 11:31 AM EST Unintentional weight loss CBC WITH AUTO DIFFERENTIAL Routine 06/24/2025 11:31 AM EST Unintentional weight loss PTH, INTACT WITHOUT CALCIUM Routine 06/24/2025 11:31 AM EST Hypercalcemia LIPID PANEL, STANDARD Routine 02/11/2025 2:05 PM EDT Primary hypertension PAP SMEAR Routine 07/02/2024 11:40 AM EST Cervical cancer screening HPV MRNA E6/E7 REFLEX TO HPV 16, 18/45 Routine 07/02/2024 12:00 AM EST from Last 3 Months or Most Recently Relevant to Health Maintenance Results * TSH with Reflex to Free T4 (06/24/2025 11:31 AM EST) TSH reflex Free T4 1.22 0.32 - 4.0 uIU/mL [facility] Blood Venous blood specimen / Unknown 06/24/2025 11:31 AM EST 06/24/2025 2:06 PM EST Abimbola Sabillon MD LAB BLOOD ORDERABLES Final Result [facility] [address] [place] [address] [phone] * CBC auto differential (06/24/2025 11:31 AM EST) Pathologist [facility] White Blood Count 6.0 4.8 - 10.8 X10*3/uL [facility] Red Blood Count 4.68 4.20 - 5.50 X10*6/uL [facility] Hemoglobin 13.2 12.0 - 16.0 g/dl [facility] Hematocrit 40.1 37.0 - 47.0 % [facility] Mean Corpuscular Volume 85.7 80.0 - 98.0 fL [facility] Mean Corpuscular Hemoglobin 28.2 27.0 - 33.0 pg [facility] Mean Corpuscular HGB Conc 32.9 31.0 - 35.0 g/dl [facility] Red Cell Distribution Width 13.1 11.0 - 16.0 % [facility] Platelet Count 297 160 - 400 X10*3/uL [facility] Mean Platelet Volume 11.1 9.4 - 12.3 fL [facility] Neutrophils Percent Auto 56.8 45 - 73 % [facility] Imm Gran Pct Auto 0.3 0.0 - 0.4 % [facility] Lymphocytes Percent Auto 33.3 20 - 40 % [facility] Monocytes Percent Auto 8.3 2 - 11 % [facility] Eosinophils Percent Auto 0.8 0 - 4 % [facility] Basophils Percent Auto 0.5 0 - 2 % [facility] NRBC Pct Auto 0.0 0.0 - 0.2 /100WBC [facility] Neutrophils Absolute Auto 3.4 2.0 - 8.3 x10*3/uL [facility] Imm Gran Abs Auto 0.02 0.00 - 0.03 X10*3/uL [facility] Lymphocytes Absolute Auto 2.0 1.2 - 4.9 X10*3/uL [facility] Monocytes Absolute Auto 0.5 0.1 - 1.2 X10*3/uL [facility] Eosinophils Absolute Auto 0.1 0.0 - 0.4 X10*3/uL [facility] Basophils Absolute Auto 0.0 0.0 - 0.2 X10*3/uL [facility] NRBC Abs Auto 0.000 0.0 - 0.012 X10*3/uL [facility] Blood Venous blood specimen / Unknown 06/24/2025 11:31 AM EST 06/24/2025 2:12 PM EST us Abimbola Sabillon MD LAB BLOOD ORDERABLES Final Result Performing Organization Address City/[facility]/ZIP Co de Phone Number [facility] [address] [place] [phone] * PTH, Intact Without Calcium (06/24/2025 11:31 AM EST) Parathyroid Hormone, Intact 25.6 8.7 - 77.1 pg/mL [facility] Blood Venous blood specimen / Unknown 06/24/2025 11:31 AM EST 06/24/2025 2:06 PM EST Abimbola Sabillon MD LAB BLOOD ORDERABLES Final Result Performing Organization Address City/[facility]/ZIP Co de Phone Number [facility] [address] [place] [phone] * (ABNORMAL) Comprehensive Metabolic Panel (06/24/2025 11:31 AM EST) Sodium 140 135 - 145 mmol/L [facility] Potassium 3.9 3.3 - 5.1 mmol/L [facility] Chloride 104 96 - 108 mmol/L [facility] Carbon Dioxide 30(H) 22 - 29 mmol/L [facility] Anion Gap 10(L) 12 - 20 [facility] Urea Nitrogen (BUN) 17(H) 9 - 16 mg/dL [facility] Creatinine, Serum 0.69 0.5 - 1.4 mg/dL [facility] Estimated Glomerular Filt Rate >60 [facility] Comment:Chronic Kidney Disea se: Estimated GFR < 60 mL/min/1.42i8Grcihv Kidney Disease: Estimated GFR < 15 mL/min/1.73m2 Glucose 99 60 - 115 mg/dL [facility] Calcium 10.0 8.4 - 10.2 mg/dL [facility] Bilirubin, Total 0.5 0.0 - 1.0 mg/dL [facility] Aspartate Amino Transferase 23 5 - 31 U/L [facility] Alanine Aminotransferase 14 0 - 31 U/L [facility] Total Protein 7.3 6.5 - 8.0 g/dL [facility] Albumin Level 4.7 3.5 - 5.0 g/dL [facility] Alkaline Phosphatase 44 39 - 117 U/L [facility] Blood Venous blood specimen / Unknown 06/24/2025 11:31 AM EST 06/24/2025 2:06 PM EST us Abimbola Sabillon MD LAB BLOOD ORDERABLES Final Result [facility] [address] [place], [place] [phone] * (ABNORMAL) Lipid Panel, Standard (02/11/2025 2:05 PM EDT) Triglycerides 80 <150 mg/dL [facility] Comment:Desirable Triglyceri de: less than 150 mg/dLBorderline High Triglyceride 150-199 mg/dLHigh Triglyceride: 200-499 mg/dLVery High Triglyceride: greater than or equal to 5OO mg/dL Cholesterol 211(H) <200 mg/dL [facility] Comment:Desirable Cholestero l: less than 200 mg/dLBorderline High Cholesterol: 200-239 mg/dLHigh Cholesterol: greater than 239 mg/dL LDL Cholesterol Calculated 119(H) <100 mg/dL [facility] Comment:Desirable LDL: less than 100 mg/dLNear Optimal/Above Optimal LDL: 110- 129 mg/dLBorderline High LDL: 130-159 mg/dLHigh LDL: 160-189 mg/dLVery High LDL: greater than or equal to 190 mg/dL HDL Cholesterol 76 >40 mg/dL [facility] Comment:Desirable HDL: great er than 40 mg/dL Note: This HDL assay may give artificially low results in patients with liver disease. Blood Venous blood specimen / Unknown 02/11/2025 2:05 PM EDT 02/11/2025 5:53 PM EDT us Abimbola Sabillon MD LAB BLOOD ORDERABLES Final Result [facility] [address] [place] [phone] * Pap Smear (07/02/2024 11:40 AM EST) Swab Cervical swab / Unknown 07/02/2024 11:40 AM EST 07/03/2024 9:30 AM EST Narrative [facility] - 07/07/2024 10:19 AM EST ----- ------- Name: Susana Mckeon Age/Sex: 38/F : 1985 Unit#: [id number] Attend Dr: Re07/02/24 Status: PRE REF Location: LNP Disch: ----- ------- SPEC : [id number] RECD: 07/03/24 STATUS: TANNER ARMENDARIZ NUM: [id number] MARI: 07/02/[address] [facility] [address]: DAMARIS WAGNER [facility] ENTERED: 07/03/24 SP TYPE: Pap Smr OT [...] 07/07/24 1019 ----- ------- END OF REPORT us Damaris CRISTINAM LAB CYTOLOGY ORDERABLES F inal Result Performing Organization Address City/[facility]/ZIP Co de Phone Number [facility] [address] [place] [phone] * HPV mRNA E6/E7 w/Reflex to HPV Genotypes 16, 18/45 (07/02/2024 12:00 AM EST) Historical Provider MD LAB CYTOLOGY ORDERABLES F inal Result Performing Organization Address [facility]/ZIP Co de Phone Number [facility] [address] [place] [phone] from Last 3 Months or Most Recently Relevant to Health Maintenance Insurance Care Teams Conservation Policy Analyst Relationship Specialty Start Date End Date Abimbola Sabillon MD [address] [place] [address] PCP - General Internal Medicine 01/17/24
--- OUTSIDE RECORDS SUMMARY | 2025-07-01 18:55 | XMS_ITS | Encounter Summary ---
Author Organization [employer] Address [address] [place] [address], [place] [address] Care Team Providers Care Bin Packer Name Role Phone Elizabeth Marquez MD Primary Care Provider [phone] Abimbola Sabillon MD Primary Care Provider [phone] Reason for Visit * Reason Comments Med Refill Encounter Details Date Type Department Care Team (Late st Contact Info) Description 05/06/2023 Refill [facility] MED & PEDS [address] [place], [place] [phone] Elizabeth Marquez MD [address] [place], [place] [phone] Social History Tobacco Use Types Packs/Day Years [...] documented as of this encounter Care Teams Bin Packer Relationship Specialty Start Date End Date Elizabeth Marquez MD [address] [place] [address] PCP - General Family Medicine 01/13/20 01/16/24 Abimbola Sabillon MD [address] [place] [phone] PCP - General Internal Medicine 01/17/24 documented as of this encounter
--- OUTSIDE RECORDS SUMMARY | 2025-07-01 18:55 | XMS_ITS | Encounter Summary ---
Author Organization [employer] Address 75 [facility] 7t [place] [address] Care Team Providers Care Sports Trainer Name Role Phone Abimbola Sabillon MD Primary Care Provider [phone] Encounter Details Date Type Department Care Team ([facility] st Contact Info) Description 12/16/2024 Orders Only [facility] CHC MED & PEDS [address] [place] [address] Keisha Stout Social History Tobacco Use Types [...] the past 12 months, has t he [employer], gas, oil or water company threatened to [...] Provider LAB CYTOLOGY ORDERABLES F inal Result [facility] [address] [place] [address] [phone] documented in this encounter Visit Diagnoses Not on filedocumented in this encounter Additional Health Concerns Assessment Noted Time PHQ-9 Depression Total Score: 16 025 11:15 AM EDT documented as of this encounter Care Teams Sports Trainer Relationship Specialty Start Date End Date Abimobla Sabillon MD [address] [place] [address] PCP - General Internal Medicine 01/17/24 documented as of this encounter
--- OUTSIDE RECORDS SUMMARY | 2025-07-01 18:55 | XMS_ITS | Encounter Summary ---
Author Organization [employer] Address [address] [facility] [address] [place] [address] Care Team Providers Care Surveyor Instrument Assistant Name Role Phone Abimbola Sabillon MD Primary Care Provider [phone] Reason for Visit * Reason Onset Date Comments Medication Question 10/27/2024 Encounter Details Date Type Department Care Team ([facility] st Contact Info) Description 10/27/2024 Telephone [facility] MEDIC[facility] [address] [place] [address] Abimbola Sabillon MD [address] [place] [address] Medication Question Social History Tobacco Use Types [...] info because they both have different instructions. [phone] documented in this encounter Plan of Treatment Not on file documented as of this encounter Visit Diagnoses Not on filedocumented in this encounter Additional Health Concerns Assessment Noted Time PHQ-9 Depression Total Score: 11 024 3:38 PM EDT documented as of this encounter Care Teams Surveyor Instrument Assistant Relationship Specialty Start Date End Date Abimbola Sabillon MD [address] [place] [address] PCP - General Internal Medicine 01/17/24 documented as of this encounter
--- OUTSIDE RECORDS SUMMARY | 2025-07-01 18:55 | XMS_ITS | Encounter Summary ---
Author Organization [employer] Address [address] [place] [address] [place], [place] [address] Care Team Providers Care Solar Crew Member Name Role Phone Elizabeth Marquez MD Primary Care Provider [phone] Abimbola Sabillon MD Primary Care Provider [phone]- [phone] Reason for Visit * Reason Comments Med Refill Encounter Details Date Type Department Care Team (Late st Contact Info) Description 05/12/2023 Refill [facility] CHC MED & PEDS 505 [place], [place] [phone] Elizabeth Marquez MD 505 [place], [place] [phone] Social History Tobacco Use Types Packs/Day Years [...] documented as of this encounter Care Teams Solar Crew Member Relationship Specialty Start Date End Date Elizabeth Marquez MD [address] [place] [address] PCP - General Family Medicine 01/13/20 01/16/24 Abimbola Sabillon MD [address] [place] [address] PCP - General Internal Medicine 01/17/24 documented as of this encounter
--- OUTSIDE RECORDS SUMMARY | 2025-07-01 18:55 | XMS_ITS | Encounter Summary ---
Author Organization [employer] Address [address] [place] [address] Care Team Providers Care Accounts Executive Name Role Phone Elizabeth Marquez MD Primary Care Provider [phone] Abimbola Sabillon MD Primary Care Provider [phone]- [phone] Reason for Visit * Reason Onset Date Comments Call Back Request 12/11/2023 Appointment Request 12/11/2023 Encounter Details Date Type Department Care Team ([facility] st Contact Info) Description 12/11/2023 Telephone [facility] CHC MED & PEDS 505 [place], [place] [phone] Elizabeth Marquez MD 505 [place], [place] [phone] Call Back Request; Appointment Request Social History [...] a call today. Please contact pt at [phone] documented in this encounter Plan of Treatment Not on file documented as of this encounter Visit Diagnoses Not on filedocumented in this encounter Additional Health Concerns Assessment Noted Time PHQ-9 Depression Total Score: 0 08/16/20 9:06 AM EST documented as of this encounter Care Teams Accounts Executive Relationship Specialty Start Date End Date Elizabeth Marquez MD [address] [place] [address] PCP - General Family Medicine 01/13/20 01/16/24 Abimbola Sabillon MD [address] [place] [address] PCP - General Internal Medicine 01/17/24 documented as of this encounter
--- OUTSIDE RECORDS SUMMARY | 2025-07-01 18:55 | XMS_ITS | Encounter Summary ---
Author Organization [employer] Address 75 [facility] 7 [place] [address] Care Team Providers Care Office Support Assistant Name Role Phone Abimbola Sabillon MD Primary Care Provider [phone] Encounter Details Date Type Department Care Team ([facility] st Contact Info) Description 08/26/2024 Orders Only [facility] CHC MED & PEDS 505 [place], [place] [phone] Abimbola Sabillon MD 505 [place] [address] Social History Tobacco Use Types Packs/Day Years [...] documented as of this encounter Care Teams Office Support Assistant Relationship Specialty Start Date End Date Abimbola Sabillon MD [address] [place] [address] PCP - General Internal Medicine 01/17/24 documented as of this encounter
--- OUTSIDE RECORDS SUMMARY | 2025-07-01 18:55 | XMS_ITS | Encounter Summary ---
Author Organization [employer] Address [address] [place] [address] Care Team Providers Care Director Motion Picture Name Role Phone Abimbola Sabillon MD Primary Care Provider [phone]- [phone] Reason for Visit * Reason Onset Date Comments Med Refill 11/07/2024 Encounter Details Date Type Department Care Team ([facility] st Contact Info) Description 11/07/2024 Refill [facility] MED & PEDS 505 [place] [address] Abimbola Sabillon MD 505 [place] [address] Attention deficit disorder, unspecified type Social History [...] as of this encounter Care Teams Director Motion Picture Relationship Specialty Start Date End Date Abimbola Sabillon MD [address] [place] [address] PCP - General Internal Medicine 01/17/24 documented as of this encounter
--- OUTSIDE RECORDS SUMMARY | 2025-07-01 18:56 | XMS_ITS | Encounter Summary ---
Author Organization [employer] Address 75 [facility] 7 [place] [address] Care Team Providers Care Auto Clutch Specialist Name Role Phone Abimbola Sabillon MD Primary Care Provider [phone]- [phone] Encounter Details Date Type Department Care Team ([facility] st Contact Info) Description 04/24/2025 Orders Only [facility] CHC MED & PEDS 505 [place], [place] [phone] Abimbola Sabillon MD 505 [place] [address] Attention deficit disorder, unspecified type (Primary Dx) [...] documented as of this encounter Care Teams Auto Clutch Specialist Relationship Specialty Start Date End Date Abimbola Sabillon MD [address] [place] [address] PCP - General Internal Medicine 01/17/24 documented as of this encounter
--- OUTSIDE RECORDS SUMMARY | 2025-07-01 18:56 | XMS_ITS | Encounter Summary ---
Author Organization [employer] Address 75 [facility] 7 [place] [address] Care Team Providers Care After School Caregiver Name Role Phone Abimbola Sabillon MD Primary Care Provider [phone]- [phone] Encounter Details Date Type Department Care Team ([facility] st Contact Info) Description 06/26/2025 Results Follow-Up [facility] CHC MED & PEDS 505 [place], [place] [phone] Abimbola Sabillon MD 505 [place] [address] PTH, Intact Without Calcium Social History Tobacco Use Types Packs/Day Years Used Date Smoking Tobacco: Former Cigarettes Q uit: 2005 Passive Smoke Exposure: Past Smokeless Tobacco: Never Depression Answer Date Recorded [...] documented as of this encounter Care Teams After School Caregiver Relationship Specialty Start Date End Date Abimbola Sabillon MD [address] [place] [address] PCP - General Internal Medicine 01/17/24 documented as of this encounter
--- OUTSIDE RECORDS SUMMARY | 2025-07-01 18:56 | XMS_ITS | Encounter Summary ---
Author Organization [employer] Address 75 [facility] 7 [place] [address] Care Team Providers Care Dual Hose Cementer Name Role Phone Abimbola Sabillon MD Primary Care Provider [phone]- [phone] Encounter Details Date Type Department Care Team ([facility] st Contact Info) Description 03/04/2025 Orders Only [facility] CHC MED & PEDS 505 [place], [place] [phone] Abimbola Sabillon MD 505 [place] [address] Attention deficit disorder, unspecified type Social History [...] documented as of this encounter Care Teams Dual Hose Cementer Relationship Specialty Start Date End Date Abimbola Sabillon MD [address] [place] [address] PCP - General Internal Medicine 01/17/24 documented as of this encounter
--- OUTSIDE RECORDS SUMMARY | 2025-07-01 18:56 | XMS_ITS | Encounter Summary ---
Author Organization [employer] Address 75 [facility] 7 [place] [address] Care Team Providers Care Community Assistant Name Role Phone Abimbola Sabillon MD Primary Care Provider [phone]- [phone] Encounter Details Date Type Department Care Team ([facility] st Contact Info) Description 04/01/2025 Orders Only [facility] CHC MED & PEDS 505 [place], [place] [phone] Abimbola Sabillon MD 505 [place] [address] Attention deficit disorder, unspecified type (Primary Dx) [...] documented as of this encounter Care Teams Community Assistant Relationship Specialty Start Date End Date Abimbola Sabillon MD [address] [place] [address] PCP - General Internal Medicine 01/17/24 documented as of this encounter
--- OUTSIDE RECORDS SUMMARY | 2025-07-01 18:56 | XMS_ITS | Encounter Summary ---
Author Organization [employer] Address 75 [facility] 7 [place] [address] Care Team Providers Care Color Consultant Name Role Phone Abimbola Sabillon MD Primary Care Provider [phone] Encounter Details Date Type Department Care Team ([facility] st Contact Info) Description 03/03/2024 Orders Only [facility] CHC MED & PEDS 505 [place], [place] [phone] Abimbola Sabillon MD 505 [place] [address] Psoriasis Social History Tobacco Use Types Packs/Day [...] 02/17 3:38 PM EDT Viral Bryant * How difficult have these problems made it for you to do your work, take care of things at home, or get along with other people? Answer Date of Assessment Author Somewhat difficult 03/05/2024 3:38 PM EDT Viral Bryant * Over the last 2 weeks, how often have you been bothered by any of the following problems? Question Answer Date of Assessment Author Feeling nervous, anxious, or on edge 1 02/17 3:38 PM EDT iVral Bryant Not being able to stop or [...] things Not at all 03/05/2024 3:38 PM Viral Magaña Feeling down, depressed, or hopeless Not at all 03/05/2024 3:38 PM EDT Viral Bryant Trouble falling or staying asleep, or sleeping too much Nearly every day 03/05/2024 3:38 PM EDT Viral Bryant Feeling tired or having little energy Nearly every day 03/05/2024 3:38 PM EDViral Espinosa Poor appetite or overeating Not at all 03/05/2024 3: 38 PM EDT Viral Bryant Feeling bad about yourself - or that you are a failure or have let yourself or your family down Not at all 03/05/2024 3:38 PM Viral Magaña Trouble concentrating on things, such as reading the newspaper or watching television Nearly every day 03/05/2024 3:38 PM Viral Magaña Moving or speaking so slowly that other people could have noticed? Or the opposite - being so fidgety or restless that you have been moving around a lot more than usual. More than half the days 03/05/2024 3:38 PM Viral Magaña Thoughts that you would be better off or hurting yourself in some way Not at all 03/05/2024 3:38 PM Viral Magaña Patient Health Questionnaire-9 Score 11 03/05/2024 3:38 PM iVral Magaña documented as of this encounter Plan of Treatment Not on file documented as of this encounter Visit Diagnoses Diagnosis Psoriasis Other psoriasis documented in this encounter Additional Health Concerns Assessment Noted Time PHQ-9 Depression Total Score: 0 08/16/20 22 9:06 AM EST documented as of this encounter Care Teams Color Consultant Relationship Specialty Start Date End Date Abimbola Sabillon MD [address] [place] [address] PCP - General Internal Medicine 01/17/24 documented as of this encounter
== END 2025-07-01 16:00 | disposition home or self-care (01) ==
LOC: HO.CHCLNP 15:59
PROVIDERS: Visit Provider Internal Medicine
DX: R63.4 Abnormal weight loss (principal)
CPT/HCPCS: 87338

== ENCOUNTER 2025-07-15 13:27 | Outpatient (REF) | payer OTHER, SELFPAY ==
[2025-07-15 15:47] LABS: Anion Gap 10 (12-20); Blood Urea Nitrogen 13 mg/dL (9-16); Calcium 9.7 mg/dL (8.4-10.2); Carbon Dioxide 29 mmol/L (22-29); Chloride 108 mmol/L (96-108); Estimated Glomerular Filt Rate > 60; Potassium 3.7 mmol/L (3.3-5.1); Sodium 143 mmol/L (135-145)
--- OUTSIDE RECORDS SUMMARY | 2025-07-15 16:38 | XMS_ITS | Encounter Summary ---
Author Organization [employer] Address 75 [facility] 7 [place] [address] Care Team Providers Care Microwave Engineer Name Role Phone Abimbola Sabillon MD Primary Care Provider [phone] Encounter Details Date Type Department Care Team ([facility] st Contact Info) Description 03/03/2024 Orders Only [facility] CHC MED & PEDS 505 [place], [place] [phone] Abimbola Sabillon MD 505 [place] [address] Psoriasis Social History Tobacco Use Types Packs/Day [...] documented as of this encounter Care Teams Microwave Engineer Relationship Specialty Start Date End Date Abimbola Sabillon MD [address] [place] [address] PCP - General Internal Medicine 01/17/24 documented as of this encounter
--- OUTSIDE RECORDS SUMMARY | 2025-07-15 16:38 | XMS_ITS | Encounter Summary ---
Author Organization [employer] Address [address] [place] [address] Care Team Providers Care Crop Nutrition Scientist Name Role Phone Elizabeth Marquez MD Primary Care Provider [phone] Abimbola Sabillon MD Primary Care Provider [phone]- [phone] Encounter Details Date Type Department Care Team ([facility] st Contact Info) Description 07/24/2023 Orders Only [facility] CHC MED & PEDS 505 [place], [place] [phone] Abimbola Sabillon MD 505 [place], [place] [phone] Psoriasis (Primary Dx) Social History Tobacco Use [...] AM EDT) T Spot TB Negative Negative [facility] Comment:A negative test resu lt [...] as aquantitative test. TS PANEL A 0 [facility] TS PANEL B 0 [facility] Negative Control Passed [facility] Positive Control Passed [facility] Comment:For additional infor mation, please refer tohttp://education.Solvate/faq/EYY506(This link is being provided for informational/educational purposes only.)THIS TEST WAS PERFORMED AT:[facility] [place] [address]GOBWQLDKORY SANCHEZ MD,PHD 01/29/2024 11:0 9 AM EDT 01/29/2024 2:22 PM EDT us Abimbola Sabillon MD LAB BLOOD ORDERABLES Final Result [facility] [address] [place] [address] [phone] documented in this encounter Visit Diagnoses Diagnosis Psoriasis- Primary Other psoriasis documented in this encounter Additional Health Concerns Assessment Noted Time PHQ-9 Depression Total Score: 0 08/16/20 22 9:06 AM EST documented as of this encounter Care Teams Crop Nutrition Scientist Relationship Specialty Start Date End Date Elizabeth Marquez MD [address] [place] [address] PCP - General Family Medicine 01/13/20 01/16/24 Abimbola Sabillon MD [address] [place] [address] PCP - General Internal Medicine 01/17/24 documented as of this encounter
--- OUTSIDE RECORDS SUMMARY | 2025-07-15 16:38 | XMS_ITS | Encounter Summary ---
Author Organization [employer] Address 75 [facility] 7 [place] [address] Care Team Providers Care Online Merchandising Coordinator Name Role Phone Abimbola Sabillon MD Primary Care Provider +[phone]- [phone] Encounter Details Date Type Department Care Team ([facility] st Contact Info) Description 03/04/2025 Orders Only [facility] CHC MED & PEDS 505 [place], [place] [phone] Abimbola Sabillon MD 505 [place] [address] Attention deficit disorder, unspecified type Social History [...] documented as of this encounter Care Teams Online Merchandising Coordinator Relationship Specialty Start Date End Date Abimbola Sabillon MD [address] [place] [address] PCP - General Internal Medicine 01/17/24 documented as of this encounter
--- OUTSIDE RECORDS SUMMARY | 2025-07-15 16:38 | XMS_ITS | Encounter Summary ---
Author Organization [employer] Address [address] [place] [address] Care Team Providers Care Hydrotel Operator Name Role Phone Abimbola Sabillon MD Primary Care Provider [phone]- [phone] Reason for Visit * Reason Onset Date Comments Medication Question 10/27/2024 Encounter Details Date Type Department Care Team ([facility] st Contact Info) Description 10/27/2024 Telephone [facility] MEDICINE [address] [place] [address] Abimbola Sabillon MD 505 [place] [address] Medication Question Social History Tobacco Use Types [...] info because they both have different instructions. [phone] documented in this encounter Plan of Treatment Not on file documented as of this encounter Visit Diagnoses Not on filedocumented in this encounter Additional Health Concerns Assessment Noted Time PHQ-9 Depression Total Score: 11 024 3:38 PM EDT documented as of this encounter Care Teams Hydrotel Operator Relationship Specialty Start Date End Date Abimbola Sabillon MD [address] [place] [address] PCP - General Internal Medicine 01/17/24 documented as of this encounter
--- OUTSIDE RECORDS SUMMARY | 2025-07-15 16:38 | XMS_ITS | Encounter Summary ---
Author Organization [employer] Address [address] [place] [address] Care Team Providers Care Floor Care Specialist Name Role Phone Elizabeth Marquez MD Primary Care Provider [phone] Abimbola Sabillon MD Primary Care Provider [phone]- [phone] Reason for Visit * Reason Onset Date Comments Call Back Request 12/11/2023 Appointment Request 12/11/2023 Encounter Details Date Type Department Care Team ([facility] st Contact Info) Description 12/11/2023 Telephone [facility] CHC MED & PEDS 505 [place], [place] [phone] [place] Marquez MD 505 [place], [place] [phone] Call Back Request; Appointment Request Social History [...] a call today. Please contact pt at [phone] documented in this encounter Plan of Treatment Not on file documented as of this encounter Visit Diagnoses Not on filedocumented in this encounter Additional Health Concerns Assessment Noted Time PHQ-9 Depression Total Score: 0 08/16/20 9:06 AM EST documented as of this encounter Care Teams Floor Care Specialist Relationship Specialty Start Date End Date Elizabeth Marquez MD [address] [place] [address] PCP - General Family Medicine 01/13/20 01/16/24 Abimbola Sabillon MD [address] [place] [address] PCP - General Internal Medicine 01/17/24 documented as of this encounter
--- OUTSIDE RECORDS SUMMARY | 2025-07-15 16:38 | XMS_ITS | Encounter Summary ---
Author Organization [employer] Address 75 [facility] 7 [place] [address] Care Team Providers Care Gut Snatcher Name Role Phone Abimbola Sabillon MD Primary Care Provider [phone]- [phone] Encounter Details Date Type Department Care Team ([facility] st Contact Info) Description 01/30/2025 Orders Only [facility] CHC MED & PEDS 505 [place], [place] [phone] Abimbola Sabillon MD 505 [place] [address] Attention deficit disorder, unspecified type (Primary Dx); [...] Hormone, Intact 25.6 8.7 - 77.1 pg/mL [facility] Blood Venous blood specimen / Unknown 06/24/2025 11:31 AM EST 06/24/2025 2:06 PM EST us Abimbola Sabillon MD LAB BLOOD ORDERABLES Final Result [facility] [address] [place] [phone] documented in this encounter Visit Diagnoses Diagnosis Attention deficit disorder, unspecified type- Primary Hypercalcemia documented in this encounter Additional Health Concerns Assessment Noted Time PHQ-9 Depression Total Score: 16 025 11:15 AM EDT documented as of this encounter Care Teams Gut Snatcher Relationship Specialty Start Date End Date Abimbola Sabillon MD [address] [place] [address] PCP - General Internal Medicine 01/17/24 documented as of this encounter
--- OUTSIDE RECORDS SUMMARY | 2025-07-15 16:38 | XMS_ITS | Encounter Summary ---
Author Organization [employer] Address 75 [facility] 7t [place] [address] Care Team Providers Care Punch Machine Hand Name Role Phone Abimbola Sabillon MD Primary Care Provider [phone] Encounter Details Date Type Department Care Team ([facility] st Contact Info) Description 12/16/2024 Orders Only [facility] CHC MED & PEDS [address] [place] [address] Keisha Stout Social History Tobacco Use Types [...] the past 12 months, has t he [employer], gas, oil or water company threatened to [...] Provider LAB CYTOLOGY ORDERABLES F inal Result [facility] [address] [place] [address] [phone] documented in this encounter Visit Diagnoses Not on filedocumented in this encounter Additional Health Concerns Assessment Noted Time PHQ-9 Depression Total Score: 16 025 11:15 AM EDT documented as of this encounter Care Teams Punch Machine Hand Relationship Specialty Start Date End Date Abimbola Sabillon MD [address] [place] [address] PCP - General Internal Medicine 01/17/24 documented as of this encounter
--- OUTSIDE RECORDS SUMMARY | 2025-07-15 16:38 | XMS_ITS | Encounter Summary ---
Author Organization [employer] Address [address] [place] [address] 7[place], [place] [address] Care Team Providers Care Wet Plant Operator Name Role Phone Elizabeth Marquez MD Primary Care Provider [phone] Abimbola Sabillon MD Primary Care Provider [phone]- [phone] Reason for Visit * Reason Comments Med Refill Encounter Details Date Type Department Care Team (Late st Contact Info) Description 05/06/2023 Refill [facility] CHC MED & PEDS 505 [place], [place] [phone] Elizabeth Marquez MD 505 [place], [place] [phone] Social History Tobacco Use Types Packs/Day Years [...] documented as of this encounter Care Teams Wet Plant Operator Relationship Specialty Start Date End Date Elizabeth Marquez MD [address] [place] [address] PCP - General Family Medicine 01/13/20 01/16/24 Abimbola Sabillon MD [address] [place] [address] PCP - General Internal Medicine 01/17/24 documented as of this encounter
--- OUTSIDE RECORDS SUMMARY | 2025-07-15 16:38 | XMS_ITS | Encounter Summary ---
Author Organization [employer] Address 75 [facility] 7 [place] [address] Care Team Providers Care Opinion Polls Survey Worker Name Role Phone Abimbola Sabillon MD Primary Care Provider [phone]- [phone] Encounter Details Date Type Department Care Team ([facility] st Contact Info) Description 04/24/[address] [facility] CHC MED & PEDS 505 [place], [place] [phone] Abimbola Sabillon MD 505 [place] [address] Attention deficit disorder, unspecified type (Primary Dx) [...] documented as of this encounter Care Teams Opinion Polls Survey Worker Relationship Specialty Start Date End Date Abimbola Sabillon MD [address] [place] [address] PCP - General Internal Medicine 01/17/24 documented as of this encounter
--- OUTSIDE RECORDS SUMMARY | 2025-07-15 16:38 | XMS_ITS | Encounter Summary ---
Author Organization [employer] Address 75 [facility] 7 [place] [address] Care Team Providers Care Shoe Worker Name Role Phone Abimbola Sabillon MD Primary Care Provider [phone]- [phone] Encounter Details Date Type Department Care Team ([facility] st Contact Info) Description 07/15/2024 Orders Only [facility] CHC MED & PEDS 505 [place], [place] [phone] Abimbola Sabillon MD 505 [place] [address] Psoriasis (Primary Dx) Social History Tobacco Use [...] documented as of this encounter Care Teams Shoe Worker Relationship Specialty Start Date End Date Abimbola Sabillon MD [address] [place] [address] PCP - General Internal Medicine 01/17/24 documented as of this encounter
--- OUTSIDE RECORDS SUMMARY | 2025-07-15 16:38 | XMS_ITS | Encounter Summary ---
Author Organization [employer] Address 75 [facility] 7t [place] [address] Care Team Providers Care Metal Organ Pipe Maker Name Role Phone Abimbola Sabillon MD Primary Care Provider [phone] Encounter Details Date Type Department Care Team ([facility] st Contact Info) Description 07/15/2025 Telephone [facility] 230 [place], [place] [phone] Beba Vizcaino RN 230 [place] [address] Social History Tobacco Use Types Packs/Day Years [...] encounter Miscellaneous Notes * Telephone Encounter - Beba Vizcaino RN - 07/15/2025 3:51 PM EST Glucose 54 Low Panic Critical glucose reported from [facility] [place]. Attempted to call pt to do status check, unable to reach. Left message to call back. documented in this encounter Plan of Treatment Not on file documented as of this encounter Visit Diagnoses Not on filedocumented in this encounter Additional Health Concerns Assessment Noted Time PHQ-9 Depression Total Score: 16 025 11:15 AM EDT documented as of this encounter Care Teams Metal Organ Pipe Maker Relationship Specialty Start Date End Date Abimbola Sabillon MD [address] [place] [address] PCP - General Internal Medicine 01/17/24 documented as of this encounter
--- OUTSIDE RECORDS SUMMARY | 2025-07-15 16:38 | XMS_ITS | Encounter Summary ---
Author Organization [employer] Address 75 [facility] 7 [place] [address] Care Team Providers Care Solar/Renewable Energy Sales Name Role Phone Abimbola Sabillon MD Primary Care Provider +1 [phone] Encounter Details Date Type Department Care Team ([facility] st Contact Info) Description 11/11/2024 Orders Only [facility] MEDICINE [address] [place] [address] Abimbola Sabillon MD [address] [place] [address] Attention deficit disorder, unspecified type (Primary Dx) [...] documented as of this encounter Care Teams Solar/Renewable Energy Sales Relationship Specialty Start Date End Date Abimbola Sabillon MD [address] [place] [phone] PCP - General Internal Medicine 01/17/24 documented as of this encounter
--- OUTSIDE RECORDS SUMMARY | 2025-07-15 16:38 | XMS_ITS | Encounter Summary ---
Author Organization [employer] Address 75 [facility] 7 [place] [address] Care Team Providers Care Switchboard And Control Room Operator Name Role Phone Abimbola Sabillon MD Primary Care Provider +1 [phone] Encounter Details Date Type Department Care Team ([facility] st Contact Info) Description 08/26/2024 Orders Only [facility] CH[facility] MED & PEDS [address] [place], [place] [phone] Abimbola Sabillon MD [address] [place] [address] Social History Tobacco Use Types Packs/Day Years [...] documented as of this encounter Care Teams Switchboard And Control Room Operator Relationship Specialty Start Date End Date Abimbola Sabillon MD [address] [place] [address] PCP - General Internal Medicine 01/17/24 documented as of this encounter
--- OUTSIDE RECORDS SUMMARY | 2025-07-15 16:38 | XMS_ITS | Encounter Summary ---
Author Organization [employer] Address 75 [facility] 7 [place] [address] Care Team Providers Care Biofuels Plant Construction Worker Name Role Phone Abimbola Sabillon MD Primary Care Provider [phone]- [phone] Encounter Details Date Type Department Care Team ([facility] st Contact Info) Description 06/26/2025 Results Follow-Up [facility] CHC MED & PEDS [address] [place], [place] [phone] Abimbola Sabillon MD [address] [place] [address] PTH, Intact Without Calcium Social History Tobacco [...] documented as of this encounter Care Teams Biofuels Plant Construction Worker Relationship Specialty Start Date End Date Abimbola Sabillon MD [address] [place] [address] PCP - General Internal Medicine 01/17/24 documented as of this encounter
--- OUTSIDE RECORDS SUMMARY | 2025-07-15 16:38 | XMS_ITS | Encounter Summary ---
Author Organization [employer] Address [address] [place] [address] Care Team Providers Care Physician Industrial Name Role Phone Abimbola Sabillon MD Primary Care Provider [phone] Reason for Referral * Consultation (Routine) - Closed Specialty Diagnoses / Procedures Referred By Marissa gilliland Referred To Contact Rheumatology Diagnoses Psoriasis Abimbola Sabillon MD [address] [place] [address] Phone: tel: fax: [facility] [address] [place] [address] Phone: tel: fax: Referral ID Status Reason Start Date Expiration Date V isits Requested Visits Authorized [id number] Closed Specialty Services Required 10/29/2024 10/29/2025 1 1 * Consultation (Urgent) - Closed Specialty Diagnoses / Procedures Referred By Marissa gilliland Referred To Contact Dermatology Diagnoses Psoriasis Abimbola Sabillon MD [address] [place] [address] Phone: tel: fax: Kar Macias MD [address] [place] [address] Phone: tel: fax: Referral ID Status Reason Start Date Expiration Date V isits Requested Visits Authorized [id number] Closed Specialty Services Required 10/27/2024 10/27/2025 1 1 Encounter Details Date Type Department Care Team (Late st Contact Info) Description 10/23/2024 Orders Only [facility] MEDICINE [address] [place] [address] Abimbola Sabillon MD [address] [place] [address] Psoriasis Social History Tobacco Use Types Packs/Day [...] documented as of this encounter Care Teams Physician Industrial Relationship Specialty Start Date End Date Abimbola Sabillon MD [address] [place] [id number] PCP - General Internal Medicine 01/17/24 documented as of this encounter
--- OUTSIDE RECORDS SUMMARY | 2025-07-15 16:38 | XMS_ITS | Encounter Summary ---
Author Organization [employer] Address [address] [place] [address] Care Team Providers Care Cold Type Composing Machine Operator Name Role Phone Abimbola Sabillon MD Primary Care Provider +1- [phone] Reason for Visit * Reason Onset Date Comments Med Refill 07/14/2025 Encounter Details Date Type Department Care Team ([facility] st Contact Info) Description 07/14/2025 Refill [facility] CHC MED & PEDS [address] [place] [address] Abimbola Sabillon MD [address] [place] [address] Low vitamin D level Social History Tobacco Use Types Packs/Day Years [...] as of this encounter Visit Diagnoses Diagnosis Low vitamin D level documented in this encounter Additional Health Concerns Assessment Noted Time PHQ-9 Depression Total Score: 16 025 11:15 AM EDT documented as of this encounter Care Teams Cold Type Composing Machine Operator Relationship Specialty Start Date End Date Abimbola Sabillon MD [address] [place] [address] PCP - General Internal Medicine 01/17/24 documented as of this encounter
--- OUTSIDE RECORDS SUMMARY | 2025-07-15 16:38 | XMS_ITS | Encounter Summary ---
Author Organization [employer] Address 75 [facility] 7 [place] [address] Care Team Providers Care Tunnel Inspector Name Role Phone Abimbola Sabillon MD Primary Care Provider +1- [phone] Encounter Details Date Type Department Care Team ([facility] st Contact Info) Description 04/01/2025 Orders Only [facility] CHC MED & PEDS [address] [place], [place] [phone] Abimbola Sabillon MD [address] [place] [address] Attention deficit disorder, unspecified type (Primary Dx) [...] documented as of this encounter Care Teams Tunnel Inspector Relationship Specialty Start Date End Date Abimbola Sabillon MD [address] [place] [address] PCP - General Internal Medicine 01/17/24 documented as of this encounter
--- OUTSIDE RECORDS SUMMARY | 2025-07-15 16:38 | XMS_ITS | Encounter Summary ---
Author Organization [employer] Address 75 [facility] 7 [place] [address] Care Team Providers Care Simulation Technician Name Role Phone Abimbola Sabillon MD Primary Care Provider +1- [phone] Encounter Details Date Type Department Care Team ([facility] st Contact Info) Description 07/03/2025 Orders Only [facility] CHC MED & PEDS [address] [place], [place] [phone] Abimbola Sabillon MD [address] [place] [address] Primary hypertension (Primary Dx) Social History Tobacco Use Types [...] Procedure Name Priority Date/Time Associated Diagnosis Comments BASIC METABOLIC PANEL Routine 07/15/2025 1:32 PM EST Primary hypertension documented in this encounter Results * (ABNORMAL) Basic Metabolic Panel (07/15/2025 1:32 PM EST) Sodium 143 135 - 145 mmol/L [facility] Potassium 3.7 3.3 - 5.1 mmol/L [facility] Chloride 108 96 - 108 mmol/L [facility] Carbon Dioxide 29 22 - 29 mmol/L [facility] Anion Gap 10(L) 12 - 20 [facility] Urea Nitrogen (BUN) 13 9 - 16 mg/dL [facility] Creatinine, Serum 0.73 0.5 - 1.4 mg/dL [facility] Estimated Glomerular Filt Rate >60 [facility] Comment:Chronic Kidney Disea se: Estimated GFR < 60 mL/min/1.01g8Mmedew Kidney Disease: Estimated GFR < 15 mL/min/1.73m2 Glucose 54(LL) 60 - 115 mg/dL [facility] Comment:Critical value for t est(s): GLUCOSE Results called to nito back by: LISETTE Kearns calling: [email or web address] Date:07/15/25 Time:1545 Calcium 9.7 8.4 - 10.2 mg/dL [facility] Blood Venous blood specimen / Unknown 07/15/2025 1:32 PM EST 07/15/2025 2:16 PM EST us Abimbola Sabillon MD LAB BLOOD ORDERABLES Final Result [facility] [address] [place] [address] [phone] documented in this encounter Visit Diagnoses Diagnosis Primary hypertension- Primary Unspecified essential hypertension documented in this encounter Additional Health Concerns Assessment Noted Time PHQ-9 Depression Total Score: 16 025 11:15 AM EDT documented as of this encounter Care Teams Simulation Technician Relationship Specialty Start Date End Date Abimbola Sabillon MD [address] [place] [phone] PCP - General Internal Medicine 01/17/24 documented as of this encounter
--- OUTSIDE RECORDS SUMMARY | 2025-07-15 16:38 | XMS_ITS | Encounter Summary ---
Author Organization [employer] Address 75 [facility] [place] [address] Care Team Providers Care Specialty Therapist Name Role Phone Abimbola Sabillon MD Primary Care Provider +1- [phone] Reason for Visit * Reason Onset Date Comments CRITICAL LAB 07/15/2025 Encounter Details Date Type Department Care Team ([facility] st Contact Info) Description 07/15/2025 Telephone [facility] [address] [place] [address] Abimbola Sabillon MD [address] [place] [address] CRITICAL LAB Social History Tobacco Use Types Packs/Day Years [...] Encounter - Beba Vizcaino RN - 07/15/2025 4:27 PM EST Critical glucose noted and routed to PCP. * Telephone Encounter - Yany Silva RN - 07/15/2025 3:46 PM EST TC incoming from [place] at [facility] lab with critical lab: Pt glucose is 54. Nurse to route to PCP and team nurses to advise. Beba BISWAS aware documented in this encounter Plan of Treatment Not on file documented as of this encounter Visit Diagnoses Not on filedocumented in this encounter Additional Health Concerns Assessment Noted Time PHQ-9 Depression Total Score: 16 025 11:15 AM EDT documented as of this encounter Care Teams Specialty Therapist Relationship Specialty Start Date End Date Abimbola Sabillon MD [address] [place] [address] PCP - General Internal Medicine 01/17/24 documented as of this encounter
--- OUTSIDE RECORDS SUMMARY | 2025-07-15 16:38 | XMS_ITS | Clinical Summary ---
Author Organization [employer] Address [address] [place] [address] 7 [place] [address] Care Team Providers Care Security Operations Engineer Name Role Phone Abimbola Sabillon MD Primary Care Provider [phone]- [phone] Allergies Active Allergy Reactions Criticality Noted Date Comments Doxycycline 04/18/2019 Atomoxetine Nausea 11/12/2024 Medications * This document contains information received from the source organization and may not represent a complete record from that organization. polyethylene glycol, PEG, 3350 (GaviLAX) 17 GM/SCOOP [...] tablet 3 025 Active Fluocinolone Acetonide Scalp (Corinth-Smoothe/F S Scalp) 0.01 % oilIndications:P soriasis To use on the scalp 2 times a week. 118 mL 2 025 Active amphetamine-dext roamphetamine (Adderall) 20 MG tabletIndication s:Attention deficit disorder, unspecified type TAKE 1 TABLET BY MOUTH EVERY DAY 30 tablet 025 Active ergocalciferol (Vitamin D2) 1.25 MG (82842 UT) capsuleIndicatio ns:Low vitamin D level TAKE 1 CAPSULE BY MOUTH ONE TIME PER WEEK 12 capsule 025 Active ergocalciferol (Vitamin D2) 1.25 MG (14521 UT) capsuleIndicatio ns:Low vitamin D level Take 1 capsule (1.25 mg) by mouth 1 (one) time per week. 12 capsule 024 2024 Discontinued(R eorder (will not trigger [...] intervention , Patient to reach out to [facility] team as needed, Patient to engage in OP therapy , and Patient to reach out to [facility] as needed Mild anxiety 03/05/2024 Irritable bowel syndrome with diarrhea 2 Psoriasis 07/23/2018 Encounters Date Type Department Care Team Description 07/15/2025 Telephone [facility] [address] [place] [address] Beba Vizcaino, TRUE 07/15/2025 Telephone [facility] [address] [place] [address] Abimbola Sabillon MD CRITICAL LAB 07/14/2025 Refill [facility] [address] [place] [address] Abimbola Sabillon MD Low vitamin D level 07/07/2025 Refill [facility] [address] [place] [address] Abimbola Sabillon MD Attention deficit disorder, unspecified type 07/03/2025 Results Follow-Up [facility] [address] [place], [place] [phone] Abimbola Sabillon MD Helicobacter pylori Antigen, EIA, Stool, CBC auto differential, Comprehensive Metabolic Panel, TSH with Reflex to Free T4 07/03/2025 Orders Only [facility] [address] [place], [place] [phone] Abimbola Sabillon MD Primary hypertension (Primary Dx) 06/26/2025 Results Follow-Up [facility] [address] [place], [place] [phone] Abimbola Sabillon MD PTH, Intact Without Calcium 06/01/2025 Refill [facility] [address] [place], [place] [phone] Abimbola Sabillon MD Psoriasis; Attention deficit disorder, unspecified type 05/24/2025 Refill [facility] [address] [place] [address] Abimbola Sabillon MD Primary hypertension 05/15/2025 2:30 PM EDT Office Visit [facility] [address] [place] [address] Abimbola Sabillon MD Primary hypertension (Primary Dx); Other specified attention deficit hyperactivity disorder (ADHD); Unintentional weight loss; Dry eyes; Irritable bowel syndrome with constipation 05/15/2025 Travel 05/04/2025 Telephone [facility] [address] [place] [address] [phone] Yi Mcintyre [place] 04/24/2025 Orders Only [facility] [address] [place], [place] [phone] Abimbola Sabillon MD Attention deficit disorder, unspecified [...] HIV Screening 1987 Alcohol/Substance Use Screening 1999 Family Planning (PISQ) 2002 HPV Vaccines (1 - 3-dose series) 2002 Hepatitis C Screening 2005 DTaP/Tdap/Td Vaccines (1 - Tdap) 2006 COVID-19 Vaccine (1 - 2024-2 6 season) 2025 Influenza Vaccine (#1) 2025 Depression Monitoring 05/08/2025 11/05/2024 , 11/05/2024 Cervical Cancer Screening 07/02/2025 Pap Smear 07/02/2025 07/02/2024 SDOH Screening 11/05/2025 11/05/2024 Disability Screening 01/27/2026 [...] 49) Years Aged Out No longer eligible based on [...] Routine 07/15/2025 1:32 PM EST Primary hypertension HELICOBACTER PYLORI AG, EIA, STOOL Routine 07/01/2025 3:00 PM EST Unintentional weight loss TSH W/REFLEX TO FT4 Routine 06/24/2025 1 [...] Relevant to Health Maintenance Results * (ABNORMAL) Basic Metabolic Panel (07/15/2025 1:32 PM EST) Sodium 143 135 - 145 mmol/L [facility] Potassium 3.7 3.3 - 5.1 mmol/L [facility] Chloride 108 96 - 108 mmol/L [facility] Carbon Dioxide 29 22 - 29 mmol/L [facility] Anion Gap 10(L) 12 - 20 [facility] Urea Nitrogen (BUN) 13 9 - 16 mg/dL [facility] Creatinine, Serum 0.73 0.5 - 1.4 mg/dL [facility] Estimated Glomerular Filt Rate >60 [facility] Comment:Chronic Kidney Disea se: Estimated GFR < 60 mL/min/1.29j7Idflod Kidney Disease: Estimated GFR < 15 mL/min/1.73m2 Glucose 54(LL) 60 - 115 mg/dL [facility] Comment:Critical value for t est(s): GLUCOSE Results called to makgisele back by: LISETTE Kearns calling: NGUYENQ Date:07/15/25 Time:1545 Calcium 9.7 8.4 - 10.2 mg/dL [facility] Blood Venous blood specimen / Unknown 07/15/2025 1:32 PM EST 07/15/2025 2:16 PM EST Abimbola Sabillon MD LAB BLOOD ORDERABLES Final Result [facility] [address] [place] [phone] * Helicobacter pylori??Antigen, EIA, Stool (07/01/2025 3:00 PM EST) H pylori Ag Stool SEE NOTE [facility] Comment:HELICOBACTER PYLORI AG, EIA, STOOL Micro Number: [id number] Test Status: Final Specimen Source: Stool Specimen Quality: Adequate H.pylori Ag: Not Detected Antimicrobials, proton pump inhibitors, and bismuth preparations inhibit H. pylori and ingestion up to two weeks prior to testing may cause false negative results. If clinically indicated the test should be repeated on a new specimen obtained two weeks after discontinuing treatment. Reference Range: Not DetectedTHIS TEST WAS PERFORMED AT:[facility] [place] [phone] CASTANON MD Stool Rectal contents / Unknown 07/01/2025 3:00 PM EST 07/01/2025 5:55 PM EST us Abimbola Sabillon MD LAB BODY FLUIDS AND STOOLS ORDERABLES Final Result Performing Organization Address City/[facility]/ZIP Co de Phone Number [facility] [address] [place] [address] [phone] * TSH with Reflex to Free T4 (06/24/2025 11:31 AM EST) Pathologist [facility] TSH reflex Free T4 1.22 0.32 - 4.0 uIU/mL [facility] Blood Venous blood specimen / Unknown 06/24/2025 11:31 AM EST 06/24/2025 2:06 PM EST Abimbola Sabillon MD LAB BLOOD ORDERABLES Final Result Performing Organization Address [facility] de Phone Number [facility] [address] [place] [address] [phone] * CBC auto differential (06/24/2025 11:31 AM EST) [facility] White Blood Count 6.0 4.8 - 10.8 X10*3/uL [facility] Red Blood Count 4.68 4.20 - 5.50 X10*6/uL [facility] Hemoglobin 13.2 12.0 - 16.0 g/dl [facility] Hematocrit 40.1 37.0 - 47.0 % [facility] Mean Corpuscular Volume 85.7 80.0 - 98.0 fL [facility] Mean Corpuscular Hemoglobin 28.2 27.0 - 33.0 pg [facility] Mean Corpuscular HGB Conc 32.9 31.0 - 35.0 g/dl [facility] Red Cell Distribution Width 13.1 11.0 - 16.0 % [facility] Platelet Count 297 160 - 400 X10*3/uL [facility] Mean Platelet Volume 11.1 9.4 - 12.3 fL [facility] Neutrophils Percent Auto 56.8 45 - 73 % [facility] Imm Gran Pct Auto 0.3 0.0 - 0.4 % [facility] Lymphocytes Percent Auto 33.3 20 - 40 % [facility] Monocytes Percent Auto 8.3 2 - 11 % [facility] Eosinophils Percent Auto 0.8 0 - 4 % [facility] Basophils Percent Auto 0.5 0 - 2 % [facility] NRBC Pct Auto 0.0 0.0 - 0.2 /100WBC [facility] Neutrophils Absolute Auto 3.4 2.0 - 8.3 x10*3/uL [facility] Imm Gran Abs Auto 0.02 0.00 - 0.03 X10*3/uL [facility] Lymphocytes Absolute Auto 2.0 1.2 - 4.9 X10*3/uL [facility] Monocytes Absolute Auto 0.5 0.1 - 1.2 X10*3/uL [facility] Eosinophils Absolute Auto 0.1 0.0 - 0.4 X10*3/uL [facility] Basophils Absolute Auto 0.0 0.0 - 0.2 X10*3/uL [facility] NRBC Abs Auto 0.000 0.0 - 0.012 X10*3/uL [facility] Blood Venous blood specimen / Unknown 06/24/2025 11:31 AM EST 06/24/2025 2:12 PM EST us Abimbola Sabillon MD LAB BLOOD ORDERABLES Final Result [facility] [address] [place] [phone] * PTH, Intact Without Calcium (06/24/2025 11:31 AM EST) Parathyroid Hormone, Intact 25.6 8.7 - 77.1 pg/mL [facility] Blood Venous blood specimen / Unknown 06/24/2025 11:31 AM EST 06/24/2025 2:06 PM EST us Abimbola Sabillon MD LAB BLOOD ORDERABLES Final Result [facility] [address] [place] [address] [phone] * (ABNORMAL) Comprehensive Metabolic Panel (06/24/2025 11:31 AM EST) Sodium 140 135 - 145 mmol/L [facility] Potassium 3.9 3.3 - 5.1 mmol/L [facility] Chloride 104 96 - 108 mmol/L [facility] Carbon Dioxide 30(H) 22 - 29 mmol/L [facility] Anion Gap 10(L) 12 - 20 [facility] Urea Nitrogen (BUN) 17(H) 9 - 16 mg/dL [facility] Creatinine, Serum 0.69 0.5 - 1.4 mg/dL [facility] Estimated Glomerular Filt Rate >60 [facility] Comment:Chronic Kidney Disea se: Estimated GFR < 60 mL/min/1.56t7Lqwcci Kidney Disease: Estimated GFR < 15 mL/min/1.73m2 Glucose 99 60 - 115 mg/dL [facility] Calcium 10.0 8.4 - 10.2 mg/dL [facility] Bilirubin, Total 0.5 0.0 - 1.0 mg/dL [facility] Aspartate Amino Transferase 23 5 - 31 U/L [facility] Alanine Aminotransferase 14 0 - 31 U/L [facility] Total Protein 7.3 6.5 - 8.0 g/dL [facility] Albumin Level 4.7 3.5 - 5.0 g/dL [facility] Alkaline Phosphatase 44 39 - 117 U/L [facility] Blood Venous blood specimen / Unknown 06/24/2025 11:31 AM EST 06/24/2025 2:06 PM EST us Abimbola Sabillon MD LAB BLOOD ORDERABLES Final Result [facility] [address] [place] [address] [phone] * (ABNORMAL) Lipid Panel, Standard (02/11/2025 2:05 PM EDT) Triglycerides 80 <150 mg/dL [facility] Comment:Desirable Triglyceri de: less than 150 mg/dLBorderline High Triglyceride 150-199 mg/dLHigh Triglyceride: 200-499 mg/dLVery High Triglyceride: greater than or equal to 5OO mg/dL Cholesterol 211(H) <200 mg/dL [facility] Comment:Desirable Cholestero l: less than 200 mg/dLBorderline High Cholesterol: 200-239 mg/dLHigh Cholesterol: greater than 239 mg/dL LDL Cholesterol Calculated 119(H) <100 mg/dL [facility] Comment:Desirable LDL: less than 100 mg/dLNear Optimal/Above Optimal LDL: 110- 129 mg/dLBorderline High LDL: 130-159 mg/dLHigh LDL: 160-189 mg/dLVery High LDL: greater than or equal to 190 mg/dL HDL Cholesterol 76 >40 mg/dL [facility] Comment:Desirable HDL: great er than 40 mg/dL Note: This HDL assay may give artificially low results in patients with liver disease. Blood Venous blood specimen / Unknown 02/11/2025 2:05 PM EDT 02/11/2025 5:53 PM EDT us Abimbola Sabillon MD LAB BLOOD ORDERABLES Final Result [facility] [address] [place] [phone] * Pap Smear (07/02/2024 11:40 AM EST) Swab Cervical swab / Unknown 07/02/2024 11:40 AM EST 07/03/2024 9:30 AM EST Narrative [facility] - 07/07/2024 10:19 AM EST ----- ------- Name: Susana Mckeon Age/Sex: 38/F : 1985 Unit#: [id number] Attend Dr: Re07/02/24 Status: PRE REF Location: [facility] Disch: ----- ------- SPEC : [id number] RECD: 07/03/24 STATUS: TANNER KALA NUM: [id number] MARI: 07/02/24-1140 [facility] DR: PAT[facility] ENTERED: 07/03/24 SP TYPE: Pap Smr OT [...] 07/07/24 1019 ----- ------- END OF REPORT Patti Wagner CNM LAB CYTOLOGY ORDERABLES F inal Result Performing Organization Address City/[facility]/ZIP Co de Phone Number [facility] [address] [place] [address] [phone] * HPV mRNA E6/E7 w/Reflex to HPV Genotypes 16, 18/45 (07/02/2024 12:00 AM EST) Historical Provider MD LAB CYTOLOGY ORDERABLES F inal Result Performing Organization Address [facility]/ZIP Co de Phone Number [facility] [address] [place] [phone] from Last 3 Months or Most Recently Relevant to Health Maintenance Insurance [employer] , [address] [address] Care Teams Security Operations Engineer Relationship Specialty Start Date End Date Abimbola Sabillon MD [address] [place] [phone] PCP - General Internal Medicine 01/17/24
--- OUTSIDE RECORDS SUMMARY | 2025-07-15 16:38 | XMS_ITS | Encounter Summary ---
Author Organization [employer] Address [address] [place] [address] Care Team Providers Care Calender Let Off Helper Name Role Phone Elizabeth Marquez MD Primary Care Provider [phone] Abimbola Sabillon MD Primary Care Provider [phone] Encounter Details Date Type Department Care Team (Late st Contact Info) Description 2022 Orders Only [facility] [address] [place] [address] Abimbola Sabillon MD [address] [place], [place] [phone] Psoriasis (Primary Dx) Social History Tobacco Use [...] psoriasis documented in this encounter Care Teams Calender Let Off Helper Relationship Specialty Start Date End Date Elizabeth Marquez MD [address] [place] [address] PCP - General Family Medicine 01/13/20 01/16/24 Abimbola Sabillon MD [address] [place] [address] PCP - General Internal Medicine 01/17/24 documented as of this encounter
--- OUTSIDE RECORDS SUMMARY | 2025-07-15 16:38 | XMS_ITS | Encounter Summary ---
Author Organization [employer] Address [address] [place] [address] [place], [place] [address] Care Team Providers Care Windows Server Architect Name Role Phone Elizabeth Marquez MD Primary Care Provider [phone] Abimbola Sabillon MD Primary Care Provider [phone] Reason for Visit * Reason Comments Med Refill Encounter Details Date Type Department Care Team (Late st Contact Info) Description 05/12/2023 Refill [facility] [address] [place], [place] [phone] Elizabeth Marquez MD [address] [place], [place] [phone] Social History Tobacco Use Types Packs/Day Years [...] documented as of this encounter Care Teams Windows Server Architect Relationship Specialty Start Date End Date Elizabeth Marquez MD [address] [place] [address] PCP - General Family Medicine 01/13/20 01/16/24 Abimbola Sabillon MD [address] [place] [address] PCP - General Internal Medicine 01/17/24 documented as of this encounter
--- OUTSIDE RECORDS SUMMARY | 2025-07-15 16:38 | XMS_ITS | Clinical Summary ---
Author Organization [facility] Address [address] [place] [address] Phone Care Team Providers Care Meat Washer Name Role Phone Abimbola Sabillon MD Primary Care Provider [phone] Encounters Date Type Department Care Team Description 05/25/2025 Telephone Gastroenterology - [address] [phone] Kar Claire MD from Last [...] PM EDT Office Visit Gastroenterology - [address] [facility] [address] [place] [phone] Luep Ulloa, JULIAN [address] [facility] [address] [place] [address] Health Maintenance Due Date Last Done Comments [...] patient's age to complete this topic Insurance [facility] Care Teams Meat Washer Relationship Specialty Start Date End Date Abimbola Sabillon MD [address] [place] [address] PCP - General Internal Medicine 07/09/24
--- OUTSIDE RECORDS SUMMARY | 2025-07-15 16:38 | XMS_ITS | Encounter Summary ---
Author Organization [employer] Address [address] [place] [address] Care Team Providers Care Learning And Development Assistant Name Role Phone Abimbola Sabiloln MD Primary Care Provider [phone] Reason for Visit * Reason Onset Date Comments Med Refill 11/07/2024 Encounter Details Date Type Department Care Team ([facility] st Contact Info) Description 11/07/2024 Refill [facility] [address] [place] [address] Abimbola Sabillon MD [address] [place] [address] Attention deficit disorder, unspecified type Social History [...] documented as of this encounter Care Teams Learning And Development Assistant Relationship Specialty Start Date End Date Abimbola Sabillon MD [address] [place] [phone] PCP - General Internal Medicine 01/17/24 documented as of this encounter
--- OUTSIDE RECORDS SUMMARY | 2025-07-15 16:38 | XMS_ITS | Encounter Summary ---
Author Organization [employer] Address [address] [facility] 7 [place] [address] Care Team Providers Care Supervisor Customer Records Division Name Role Phone Abimbola Sabillon MD Primary Care Provider [phone] Encounter Details Date Type Department Care Team (Latest Contact Info) Description 07/03/2025 Results Follow-Up [facility] [address] [place], [place] [phone] Abimbola Sabiloln MD [address] [place] [address] Helicobacter pylori Antigen, EIA, Stool, CBC auto differential, Comprehensive Metabolic Panel, TSH with Reflex to Free T4 Social History Tobacco Use Types Packs/Day Years [...] as of this encounter Miscellaneous Notes * Result Encounter Note - Abimbola Sabillon MD - 07/03/2025 9:45 AM EST Please call. Labs reviewed and shows sign of dehydration. Please advise to use hydrochlorothiazide every other day and to increase fluid intake. documented in this encounter Plan of Treatment Not on file documented as of this encounter Visit Diagnoses Not on filedocumented in this encounter Additional Health Concerns Assessment Noted Time PHQ-9 Depression Total Score: 16 025 11:15 AM EDT documented as of this encounter Care Teams Supervisor Customer Records Division Relationship Specialty Start Date End Date Abimbola Sabillon MD [address] [place] [phone] PCP - General Internal Medicine 01/17/24 documented as of this encounter
--- OUTSIDE RECORDS SUMMARY | 2025-07-15 16:38 | XMS_ITS | Encounter Summary ---
Author Organization [employer] Address [address] [facility] 7 [place] [address] Care Team Providers Care Administrative Processor Name Role Phone Abimbola Sabillon MD Primary Care Provider [phone] Encounter Details Date Type Department Care Team ([facility] st Contact Info) Description 02/12/2024 Orders Only [facility] [address] [place], [place] [phone] Abimbola Sabillon MD [address] [place] [address] Social History Tobacco Use Types Packs/Day Years [...] documented as of this encounter Care Teams Administrative Processor Relationship Specialty Start Date End Date Abimbola Sabillon MD [address] [place] [address] PCP - General Internal Medicine 01/17/24 documented as of this encounter
--- OUTSIDE RECORDS SUMMARY | 2025-07-15 16:38 | XMS_ITS | Encounter Summary ---
Author Organization [employer] Address [address] [place] [address] Care Team Providers Care Maintenance Service Supervisor Name Role Phone Abimbola Sabillon MD Primary Care Provider [phone] Reason for Referral * Consultation (Routine) - Closed Specialty Diagnoses / Procedures Referred By Contac t Referred To Contact Rheumatology Diagnoses Psoriasis Psoriatic arthritis (CMS/HCC) ([facility]) Abimbola Sabillon MD [address] [place] [address] Phone: tel: fax: [facility] [address] [place], [place] Phone: tel: fax: Referral ID Status Reason Start Date Expiration Date V isits Requested Visits Authorized [id number] Closed Specialty Services Required 12/23/2024 12/23/2025 1 1 Encounter Details Date Type Department Care Team (Late st Contact Info) Description 12/23/2024 Orders Only [facility] [address] [place], [place] [phone] Abimbola Sabillon MD [address] [place], [place] [phone] Psoriasis (Primary Dx); Psoriatic arthritis (CMS/HCC) Social [...] documented as of this encounter Care Teams Maintenance Service Supervisor Relationship Specialty Start Date End Date Abimbola Sabillon MD [address] [place] [address] [address] PCP - General Internal Medicine 01/17/24 documented as of this encounter
== END 2025-07-15 13:28 | disposition home or self-care (01) ==
LOC: HO.CHCLDS 13:27
PROVIDERS: Visit Provider Internal Medicine
DX: I10 Essential (primary) hypertension (principal)
CPT/HCPCS: 36415; 80048